=== PATIENT | female | born 1960 | race Caucasian/White ===

== ENCOUNTER 2021-06-02 12:30 | Outpatient (RCR) | payer BC, SELFPAY ==
--- NOTE | 2021-04-21 10:47 | PTOPEVAL ---
PHYSICAL THERAPY EVALUATION AND PLAN OF CARE 04-20-21 Thank you for referring Nila Rodriguez to [facility] for the diagnosis of lymphedema. She is scheduled to be seen for therapy? 1-2 x/week for 6 weeks. Treatment was recommended for 2x/wk, but due to her schedule, she requested 1-2x/wk. Please review, sign, date and return this plan of care PAOLO. I agree with and certify that the following plan of care is medically necessary. Referring Physician Date Attending Provider: Audi Lerner MD *PT Outpatient Evaluation Document 04/21/21 09:10 GEMINI (Rec: 04/21/21 10:47 GEMINI [id number]) Outpatient Past Medical History Past Medical History Source of Past Medical History Patient Neurological History Hx Neurological Disorders No Significant History Cardiovascular History Hx Cardiac Disorders No Significant History Respiratory History Hx Respiratory Disorders No Significant History Gastrointestinal History Hx Appendectomy Yes Genitourinary History Hx Genitourinary Disorders No Significant History Musculoskeletal History Hx Orthopedic Surgery Yes: R rotator cuff surgery; Hx Other Musculoskeletal Disorders Yes: B feet pain-?plantar fascitis L and pain bottom of feet;neck pain chronic Endocrine History Hx Endocrine Disorders No Significant History HEENT History Hx HEENT Disorders No Significant History Integumentary History Hx Skin Disorders No Significant History Other History Hx Cancer Yes: R breast cancer Hx Other Medical Conditions Yes: have had COVID vaccine; 40# wt gain in past year Evaluation Information Problem Diagnosis lymphedema Onset about one year Subjective Information more swelling and issues over Query Text:As Reported By Patient/ the past year; Family Prior Level of Function Activity Level (Last 3 Months) Occupation not working outside of home Hand Dominance Right Activity of Daily Living Ability Independent Indoor/Home Mobility Independent Community Mobility Independent Stairs Ability Independent Functional Cognition (Planning, Shopping Independent , Taking Medications) Cooking Yes Cleaning Yes Laundry Yes Shopping Yes Driving Yes Home Setting Home Type House Living Situation With Spouse Comments Additional Prior Level of Function decrease lifting and pulling Comments or overuse with R arm--if overdo it--increase pain and
--- NOTE | 2021-05-29 14:04 | PCPTNOTE ---
LATE ENTRY: 2nd session from last week canceled due to therapist ill;
--- NOTE | 2021-06-02 13:41 | PTOPEVAL ---
PHYSICAL THERAPY DISCHARGE 06-02-21 Refer to the clinical summary below, for her status today, compared to the initial evaluation. Discharge PT at this time. Thank you for referring Nila Rodriguez to [facility].? Please review, sign, date and return this Discharge Report PAOLO. I agree with and certify that the following plan of care is medically necessary. Referring Physician Date Attending Provider: Audi Lerner MD Document 06/02/21 12:41 GEMINI (Rec: 06/02/21 13:41 GEMINI [id number]) Assessment Status Discharge Subjective Information Nila reports: doing better, Query Text:As Reported By Patient/ arm improved, but still Family fullness in upper arm; is doing self massage at home and using her home pump daily; sleeve and glove are doing good; am using arm with chores ; realize that she has to continue taking care of her arm daily; agrees to discharge from PT. Pain Assessment Timing of Pain Assessment Timing of Pain Assessment Assessment Pain Scale Pain Scale Used Numeric (1 - 10) Self Report Pain Assessment Right Arm(s) Reported Pain Level 2 Radicular Pain Location heavy and ache in upper arm Pain Frequency Chronic,Continuous Other Pain Description fullness of upper arm- comes and goes, always feels different than L Pain Score Pain Score 2: Self Report Interventions Used Interventions Used By Clinicians Education Cervical and Lumbar ROM Cervical ROM Cervical ROM Comments standing cervical rotation to R and L ~ 80' without pain reported Upper Extremity Range of Motion General Upper Extremity Range of Motion Gross Upper Extremity Range of Motion standing R shoulder active ROM Comments : flexion 160', abduction 160' - report tight at end range but is equal to the L shoulder ; IR- reach behind back, fingers to bra strap; ER- reach to back of head--palm to back of head; Lymphedema Evaluation Skin Inspection Location Right Upper Extremity,Right Anterior Lower Quadrant,Right Anterior Upper Quadrant,Right Posterior Lower Quadrant,Right Posterior Upper Quadrant Skin Observations Hyperpigmentation,Hyperplasia Palpation
== END 2021-06-07 15:28 | disposition home or self-care (01) ==
LOC: ANHPT 12:30
DX: I89.0 Lymphedema, not elsewhere classified (principal); C50.911 Malignant neoplasm of unspecified site of right female breast; C77.3 Secondary and unspecified malignant neoplasm of axilla and upper limb lymph nodes; Z79.811 Long term (current) use of aromatase inhibitors
CPT/HCPCS: 97110; 97140; 97161

== ENCOUNTER 2021-08-10 08:37 | Emergency (ER) | payer BC, SELFPAY ==
--- NOTE | ~2021-08-10 | XR_ITS ---
EXAMINATION: XR shoulder RT min 2V DATE: 08/10/2021 09:40 INDICATION: Right shoulder pain and limited range of motion post fall TECHNIQUE: AP internally and externally rotated, AP oblique externally rotated and transscapular Y vi ews of the right shoulder were obtained. COMPARISON: None FINDINGS: Comminuted fractures of the right humerus which involves the greater trochanter as well as a transver se fracture line which extends across the surgical neck and inferior aspect of the lesser trochanter. Fractures remain minimally displaced consistent with a 1 part fracture. No other fractures identifie d. Mild acromioclavicular osteoarthritis with small inferiorly directed osteophyte. Multiple surgical clips the right axilla likely related to prior lymph node dissection. Right lung is clear with no pl eural effusion or pneumothorax. Surgical clip projecting over the central chest likely related to crispin or right mastectomy better appreciated on CT dated 06/24/2017. Left-sided central venous catheter with distal tip at the caudal superior vena cava. IMPRESSION: Minimally displaced comminuted 1 part fracture of the proximal right humerus. Reviewed, dictated and finalized at location A.
--- NOTE | ~2021-08-10 | CT_ITS ---
EXAMINATION: CT shoulder RT wo con DATE: 08/10/2021 11:11 INDICATION: Shoulder pain and proximal humeral fracture post fall. TECHNIQUE: High resolution computed tomography (CT) of the right shoulder was performed without intra venous contrast. Additional sagittal and coronal reconstructions were performed. Automated exposure c ontrol and iterative reconstruction technique were employed. The dose-length product was 338.69 mGy-c m. COMPARISON: Right shoulder radiographs dated 08/10/2021 FINDINGS: Minimally displaced comminuted 1 part fracture of the proximal right humerus. This includes a transve rse fracture extending across the surgical neck and the inferior aspect of the lesser tuberosity. The re is an additional fracture plane extending across the cephalad aspect of the lesser tuberosity resu lting in nondisplaced free lesser tuberosity fragment. A fracture plane also extends across the base of the greater tuberosity. The greater tuberosity and the rotator cuff footplates are divided amongst 3 main fragments. No evident involvement of the articular cortex. Alignment remains near-anatomic. The humeral head remains normally centered over the glenoid with nor mal glenohumeral joint space where there is a small hemarthrosis. No other fractures identified. Mild acromioclavicular osteoarthritis. Minimal fine reticular opacities along the anterior margin of the right upper lobe which could represent radiation fibrosis related to a prior breast cancer suggested by prior right mastectomy and right axillary lymph node dissection with several surgical clips at the right axilla. Visualized portion of the right lung is otherwise clear. No pathologically enlarged ri ght hilar or axillary lymphadenopathy. IMPRESSION: 1. Minimally displaced comminuted 1 part fracture of the proximal right humerus involving the surgica l neck, lesser tuberosity and comminuted fracture of the greater tuberosity. 2. Small right glenohumeral hemarthrosis. Reviewed, dictated and finalized at location A. IMPRESSION: 1. Minimally displaced comminuted 1 part fracture of the proximal right humerus involving the surgical neck, lesser tuberosity and comminuted fracture of the greater tuberosity. 2. Small right glenohumeral hemarthrosis.
[2021-08-10 09:10] VITALS: BP 135/73; PULSE 68; RESP 16; TEMP 36.6; O2SAT 98
--- NOTE | 2021-08-10 10:29 | ED.GENADULT ---
HPI - General Adult General Chief complaint: Extremity Injury, Upper <Danielle Weaver PA-C - Last Filed: 08/10/21 12:40> Stated complaint: r shoulder/fall <DERRICK Mistry Last Filed: 08/10/21 12:40> Time Seen by Provider: 08/10/21 09:20 <DERRICK Mistry Last Filed: 08/10/21 12:40> Source: patient <DERRICK Mistry Last Filed: 08/10/21 12:40> Mode of arrival: ambulatory <DERRICK Mistry Last Filed: 08/10/21 12:40> Limitations: no limitations <DERRICK Mistry Last Filed: 08/10/21 12:40> History of Present Illness HPI narrative: Patient presents with chief complaint of pain to the right shoulder that she sustained this morning while chasing her dog in the ER. Patient states that she tripped on the stump and feels lower onto her right shoulder. Patient reports pain with any movement in the right shoulder. She reports rotator cuff repair surgery and decompression of impingement 30 years ago. Patient reports some soreness to her anterior right hip but denies any bony tenderness or difficulties walking or moving the extremity. Patient denies any head impact or loss of consciousness. Patient denies any other symptoms or concerns. <Danielle Weaver PA-C - Last Filed: 08/10/21 12:40> Related Data Allergies/adverse reactions: Allergies Allergy/AdvReac Type Severity Reaction Status Date / Time cephalexin AdvReac Unknown Diarrhea Verified 08/10/21 11:22 <Danielle Weaver PA-C - Last Filed: 08/10/21 12:40> Review of Systems Review of Systems: CONSTITUTIONAL: Denies fever, chills, or sweats. EYES: Denies visual changes, redness, or discharge. ENT: Denies rhinorrhea, congestion, sore throat, or otalgia. CARDIOVASCULAR: Denies chest pain, palpitations, or edema. RESPIRATORY: Denies cough or dyspnea. GASTROINTESTINAL: Denies abdominal pain, nausea, vomiting, or diarrhea. GENITOURINARY: Denies dysuria or hematuria. SKIN: Denies rash or itching. MUSCULOSKELETAL: Reports right shoulder pain denies back pain, joint pain, or myalgia. NEUROLOGIC: Denies headache, numbness, dizziness, or weakness. PSYCHIATRIC: Denies anxiety or depression. <Danielle Weaver PA-C - Last Filed: 08/10/21 12:40> Exam Narrative: GENERAL: Well-appearing, well-nourished, and in no acute distress. HEAD: Normocephalic, atraumatic. EYES: PERRLA and EOMI. NECK: Supple. No signs of injury. Range of motion intact. CHEST: No tenderness to palpation. Clear to auscultation. No respiratory distress. No wheezes rales or rhonchi HEART: Regular rate and rhythm. No murmur heard. Normal peripheral pulses. ABDOMEN: Soft, nontender, nondistended, normal active bowel sounds. EXTREMITIES: Tenderness to palpation to the proximal right shoulder. All range of motion decreased due to pain. No pain distally. Strength intact. Patient denies servando tenderness to right proximal thigh. ROM intact to lower extremity. Patient able to ambulate. SKIN: Warm, dry, no rash. NEURO: No focal deficits. Alert and oriented x3. PSYCH: Normal mood and affect. <Danielle Weaver PA-C - Last Filed: 08/10/21 12:40> Course AVIATION MANAGER/PA Physician Supervision I did not see this patient nor was the care plan discussed with me. I was available for evaluation and consultation, I agree with the documentation as above. <Smith Martell MD - Last Filed: 08/10/21 16:21> Vital Signs Vital signs: Vital Signs Temperature 36.6 C 08/10/21 09:10 Pulse Rate 68 08/10/21 09:10 Respiratory Rate 16 08/10/21 09:10 Blood Pressure 135/73 08/10/21 09:10 Pulse Oximetry 98 08/10/21 09:10 Temperature 36.6 C 08/10/21 09:10 Pulse Rate 79 08/10/21 12:55 Respiratory Rate 16 08/10/21 12:55 Blood Pressure 142/81 H 08/10/21 12:55 Pulse Oximetry 98 08/10/21 12:55 <Danielle Weaver PA-C - Last Filed: 08/10/21 12:40> Vital Signs Temperature 36.6 C 08/10/21 09:10 Pulse Rate 68 08/10/21 09:10 Respirato
[2021-08-10] MEDS: HYDROcodone/acetaminophen (*CRX) 5-325 MG TABLET 1 TAB PO (11:36)
[2021-08-10 12:55] VITALS: BP 142/81; PULSE 79; RESP 16; O2SAT 98
== END 2021-08-10 12:55 | disposition home or self-care (01) ==
PROVIDERS: Emergency Provider Emergency Medicine
DX: S42.211A Unspecified displaced fracture of surgical neck of right humerus, initial encounter for closed fracture (principal); S42.251A Displaced fracture of greater tuberosity of right humerus, initial encounter for closed fracture; S42.261A Displaced fracture of lesser tuberosity of right humerus, initial encounter for closed fracture; W18.09XA Striking against other object with subsequent fall, initial encounter; Y93.02 Activity, running
CPT/HCPCS: 73030; 73200; 99284; A4565; A9270

== ENCOUNTER 2021-12-05 13:30 | Outpatient (RCR) | payer BC, SELFPAY ==
--- NOTE | 2021-09-12 10:11 | PTOPEVAL ---
PHYSICAL THERAPY EVALUATION AND PLAN OF CARE 09-12-21 Thank you for referring Nila Rodriguez to [facility] for the diagnosis of R proximal humeral fracture and L shoulder subacromial bursitis. She is scheduled to be seen for therapy? 1-2 x/week for 6 weeks. Please review, sign, date and return this plan of care PAOLO. I agree with and certify that the following plan of care is medically necessary. Referring Physician Date Attending Provider: Kiran Chase MD *PT Outpatient Evaluation Document 09/12/21 09:00 GEMINI (Rec: 09/12/21 10:09 GEMINI [id number]) Outpatient Past Medical History Past Medical History Source of Past Medical History Recalled from Previous Visit, Confirmed with Patient/Family Neurological History Hx Neurological Disorders No Significant History Cardiovascular History Hx Cardiac Disorders No Significant History Respiratory History Hx Respiratory Disorders No Significant History Gastrointestinal History Hx Appendectomy Yes Genitourinary History Hx Genitourinary Disorders No Significant History Musculoskeletal History Hx Orthopedic Surgery Yes: R rotator cuff surgery- impingement & repair rot cuff; Hx Other Musculoskeletal Disorders Yes: B feet pain-?plantar fascitis L and pain bottom of feet;neck pain chronic Endocrine History Hx Endocrine Disorders No Significant History HEENT History Hx HEENT Disorders No Significant History Integumentary History Hx Skin Disorders No Significant History Other History Hx Cancer Yes: R breast cancer with mast &lymph node removal; compression sleeve & home pump Hx Other Medical Conditions Yes: have had COVID vaccine; 40# wt gain in past year Evaluation Information Problem Diagnosis L proximal humeral fracture; chronic pain L shoulder- subacromial bursitis Onset 08-10-21 Subjective Information fell when chasing her dog, Query Text:As Reported By Patient/ fell forward, with R arm Family extended and onto her R hip; non surgical, wearing sling, but reports remove at home and let arm hang, doing pendulum exercises 3x/day; Diagnostic Tests X-Rays For This Problem Yes: L shoulder xray negative, chronic pain Prior Level of Function Activity Level (Last 3 Months) Hand Dominance Right Activity of Daily Living Ability Independent Indoor/Home Mobility Independent Community Mo
--- NOTE | 2021-09-26 11:09 | PCPTNOTE ---
pt brought in new orders today:dated 09-25-21: Dr Chase: L shoulder: periscapular strengthening, GH ROM, rot cuff strengthening; R shoulder: PROM and AAROM, 5# lifting restriction, NO Strengthening; plan of care updated to above; discussed pt with TIMO Lucero
--- NOTE | 2021-10-23 11:53 | PCPTNOTE ---
pt did not show for reeval appt today; she called over ah hour after the appt time and canceled due to not feeling well.
[2021-11-10 11:05] VITALS: BP_SYST 85
--- NOTE | 2021-11-10 11:44 | PTOPEVAL ---
PHYSICAL THERAPY RE-EVALUATION AND UPDATED PLAN OF CARE 11-10-21 Refer to the clinical summary below, for her status today, compared to the initial evaluation. Continue PT treatment 1x/wk for 4 weeks. Thank you for referring Nila Rodriguez to [facility].? Please review, sign, date and return this plan of care PAOLO. I agree with and certify that the following plan of care is medically necessary. Referring Physician Date Attending Provider: Kiran Chase Assessment Status Re-evaluation Subjective Information Nila reports: cortisone shot Query Text:As Reported By Patient/ in L shoulder has helped pain Family ; sleeping is better, awaken about once/week due to shoulder pain; cannot lie on her R shoulder but able to move around in bed better; is sleeping in the bed; R shoulder is improving and less painful; no restrictions from dr, other than 5# lifting for R arm; if L shoulder is not better at the next dr visit, he will order an MRI ? for tear of shoulder; have been doing her exercises at home and have a pully at home now; Pain Assessment Timing of Pain Assessment Timing of Pain Assessment Assessment Pain Scale Pain Scale Used Numeric (1 - 10) Self Report Pain Assessment Right Shoulder(s) Reported Pain Level 0 Pain Description Aching,Dull,Sharp Pain Frequency Chronic,Intermittent Other Pain Description flashes of pain Lowest Pain Intensity 0 Greatest Pain Intensity 4 Pain Aggravating Factors Exercise/Activity Other Pain Aggravating Factors reaching too high, lifting something Pain Behaviors Anxious,Guarding Left Shoulder(s) Reported Pain Level 0 Pain Description Sharp Radicular Pain Location little sharp, not bad pain anymore Pain Frequency Chronic,Intermittent Other Pain Description improved since got the shoulder injection 11-01-21 Lowest Pain Intensity 0 Greatest Pain Intensity 3 Pain Aggravating Factors Exercise/Activity Pain Score Pain Score 0,0: Self Report Additional Pain Score Comments pain in R forearm and arm is more swollen; have some
[2021-12-05 13:35] VITALS: BP_SYST 85
--- NOTE | 2021-12-05 14:19 | PTOPEVAL ---
PHYSICAL THERAPY RE-EVALUATION REPORT 12-05-21 Refer to the clinical summary below, for her status today, compared to the last reevaluation. The goals were partially achieved. Her L shoulder has improved, but the R shoulder continues to have pain with decreased ROM and strength. She is to see you next week. If PT is to continue, please give her a new script for PT. Thank you for referring Nila Rodriguez to [facility].? Please review, sign, date and return this reeval report PAOLO. I agree with and certify that the following plan of care is medically necessary. Referring Physician Date Attending Provider: Kiran Chase MD *PT Outpatient Re- Evaluation Subjective Information Nila reports: L shoulder is Query Text:As Reported By Patient/ better, but R shoulder still Family giving problems; reaching out to the side with R arm is hard and reaching up; R shoulder feels like shifting or clicking in it; sees the dr next week; is doing her exercises at home; frustrated that still having problems with R shoulder; Had cellulitis in R forearm-- finished antibiotics about 1 & 1/2 wk ago, still have some pain and tightness over forearm. Has still been wearing her compression sleeve for lymphedema over arm. Pain Assessment Timing of Pain Assessment Timing of Pain Assessment Assessment Pain Scale Pain Scale Used Numeric (1 - 10) Self Report Pain Assessment Right Shoulder(s) Reported Pain Level 0 Radicular Pain Location anterior, lateral and posterior GH joint Pain Frequency Chronic,Intermittent Other Pain Description weak and cannot move it--out to side or lift forward; popping in shoulder Lowest Pain Intensity 0 Greatest Pain Intensity 4 Pain Aggravating Factors Exercise/Activity Left Shoulder(s) Reported Pain Level 0 Pain Frequency Chronic,Intermittent Other Pain Description flash of pain when reach up too high; Lowest Pain Intensity 0 Greatest Pain Intensity 2 Pain Aggravating Factors Exercise/Activity Pain Score Pain Score 0,0: Self Report Additional Pain Score Comments cannot lie on R shoulder for sleeping; Interventions Used Interventions Used By Clinicians Education
--- NOTE | 2022-01-05 12:56 | PCPTNOTE ---
PHYSICAL THERAPY DISCHARGE 01-05-22 late entry Attending Provider: Kiran Chase MD Patient:Nila Rodriguez Date of :1960 Nila has not returned for any further treatments since the reevaluation on 12/05/2021, therefore she will be discharged at this time. Refer to the reevaluation report for her status at the last session. Thank you for referring Mrs. Rodriguez to [facility]. Please review, sign, date and return this discharge summary PAOLO. I have been updated about the patient's current status and I agree with discharge from the above service at this time. Referring Physician Date
== END 2021-12-11 23:59 | disposition home or self-care (01) ==
LOC: ANHPT 13:30
DX: M75.52 Bursitis of left shoulder (principal); S42.294D Other nondisplaced fracture of upper end of right humerus, subsequent encounter for fracture with routine healing
CPT/HCPCS: 97110; 97140; 97162

== ENCOUNTER 2022-02-21 13:15 | Outpatient (RCR) | payer BC, SELFPAY ==
[2022-01-18 12:30] VITALS: BP_SYST 100
--- NOTE | 2022-01-18 13:38 | PTOPEVAL ---
PHYSICAL THERAPY EVALUATION AND PLAN OF CARE 01-18-22 Thank you for referring Nila Rodriguez to [facility] for the diagnosis of B rotator cuff tears. Nila to be seen for therapy? 1 x/week for 5 weeks. She requested only once/week due to her other commitments. Please review, sign, date and return this plan of care PAOLO. I agree with and certify that the following plan of care is medically necessary. Referring Physician Date Attending Provider: Juan Alberto Tavarez MD Past Medical History Source of Past Medical History Recalled from Previous Visit, Confirmed with Patient/Family Neurological History Hx Neurological Disorders No Significant History Cardiovascular History Hx Cardiac Disorders No Significant History Respiratory History Hx Respiratory Disorders No Significant History Gastrointestinal History Hx Appendectomy Yes Genitourinary History Hx Genitourinary Disorders No Significant History Musculoskeletal History Hx Orthopedic Surgery Yes: R rotator cuff surgery- impingement & repair rot cuff; Hx Other Musculoskeletal Disorders Yes: B feet pain-?plantar fascitis L and pain bottom of feet;neck pain chronic Endocrine History Hx Endocrine Disorders No Significant History HEENT History Hx HEENT Disorders No Significant History Integumentary History Hx Skin Disorders No Significant History Other History Hx Cancer Yes: R breast cancer with mast &lymph node removal; compression sleeve & home pump Hx Other Medical Conditions Yes: have had COVID vaccine; 40# wt gain in past year Evaluation Information Problem Diagnosis B rotator cuff tears Onset Aug 10, 2021 Subjective Information s/p fall Jul with R Query Text:As Reported By Patient/ proximal humeral fracture and Family chronic pain L shoulder; since last here for PT; last week had injections R and L shoulder, has improved about 20%, but still hurts hwen move arms; told her to come for PT and get shoulders moving; surgery has not been considered; the past month have been busy with her parents returning from out of town and has not done any exercises for her shoulders. Previous Treatments Previous Treatments For This Problem previous PT here for B shoulders Sep 16
--- NOTE | 2022-02-21 14:04 | PTOPEVAL ---
PHYSICAL THERAPY DISCHARGE 02-21-22 Refer to the clinical summary below, for her status today compared to the initial evaluation. The goals were partially achieved. Nila is to continue with the home exercises and increasing her activity level. She did report falling this AM, when taking out the trash cans. She fell forward, landing on her knees first, then her extended arms. So, she had a little more soreness this afternoon. Discussed with her slow down, concentrate on what you are doing to try decrease any more falls. She voiced an understanding and did say she was concerned about the falls she has been having. Thank you for referring Nila Rodriguez to [facility] Please review, sign, date and return this Discharge report PAOLO. I agree with and certify that the following plan of care is medically necessary. Referring Physician Date Attending Provider: Dr. Krian Chase Subjective Information Nila reports: fell this AM-- Query Text:As Reported By Patient/ taking out trash can and fell- Family - forward,land on her knees first and then onto both arms; feels shoulders are improving- stronger and moving easier; still feel both shoulders; is afraid to move arms too much and make them hurt again; is doing the exercises; Pain Assessment Pain Scale Pain Scale Used Numeric (1 - 10) Self Report Pain Assessment Right Shoulder(s) Reported Pain Level 1 Pain Description Aching,Dull,Sharp Radicular Pain Location ant and post GH joint Pain Frequency Chronic,Intermittent Other Pain Description sharp when use arm Lowest Pain Intensity 0 Greatest Pain Intensity 3 Pain Aggravating Factors Exercise/Activity Pain Behaviors Anxious,Guarding Left Shoulder(s) Reported Pain Level 1 Pain Description Aching,Dull Pain Frequency Chronic,Intermittent Other Pain Description little aggravating pain, something change and feel little more Lowest Pain Intensity 0 Greatest Pain Intensity 4 Pain Score Pain Score 1,1: Self Report Additional Pain Score Comments doing OK in kitchen, except reaching high into the cabinets is still hard; is doing grocery shopping, carry less bags when unloading car; assist with carrying heavy things; am using arms pretty well; raked yard about 10 min and
== END 2022-02-22 13:49 | disposition home or self-care (01) ==
LOC: ANHPT 13:15
DX: M25.511 Pain in right shoulder (principal); M25.512 Pain in left shoulder
CPT/HCPCS: 97110; 97112; 97140; 97162

== ENCOUNTER → 2022-09-19 14:26 | Outpatient (CLI) | payer BC, SELFPAY ==
--- NOTE | ~2022-09-19 | XR_ITS ---
XR thoracic spine 3V DATE: 09/19/2022 14:47 INDICATION: Mid back pain TECHNIQUE: AP, lateral and swimmer views COMPARISON: None FINDINGS: Left Port-A-Cath catheter tip overlies superior vena cava. There is moderate degenerative spurring of the thoracic spine. There is osteopenia. No fracture, disl ocation or bone destruction of the thoracic spine is evident. The thoracic pedicles are intact. No pa raspinal soft tissue thickening. IMPRESSION: Osteopenia Moderate degenerative spurring Reviewed, dictated and finalized at location A. ESSOR OF RHETORIC
--- NOTE | ~2022-09-19 | XR_ITS ---
XR lumbar spine 2-3V DATE: 09/19/2022 14:47 INDICATION: Back pain TECHNIQUE: AP, lateral, coned lateral lumbosacral views COMPARISON: None FINDINGS: There is osteopenia. Normal alignment of the lumbar spine. No fracture or bone destruction or spondylolisthesis. The lumba r pedicles are intact. There is mild degenerative spurring but lumbar and lumbosacral interspaces are relatively preserved. The sacroiliac joints are intact. IMPRESSION: Osteopenia Mild degenerative spurring Reviewed, dictated and finalized at location A. STIC ENGINEER
== END ==
PROVIDERS: PCP Family Medicine; Visit Provider Family Medicine
DX: M54.9 Dorsalgia, unspecified (principal); M85.88 Other specified disorders of bone density and structure, other site
CPT/HCPCS: 72072; 72100

== ENCOUNTER 2022-09-24 11:23 | Outpatient (CLI) | payer BC, SELFPAY ==
[2022-09-24 19:54] LABS: Basophils Absolute Auto 0.1 K/mm3 (0.0-0.1); Basophils Percent Auto 1.2 % (0.2-1.2); Eosinophils Absolute Auto 0.3 K/mm3 (0-0.3); Eosinophils Percent Auto 3.6 % (0-4.4); Hematocrit 40.9 % (37.0-47.0); Immature Granulocyte Absolute 0.01 K/mm3 (0.00-0.031); Immature Granulocyte Percent A 0.1 % (0-0.5); Lymphocytes Absolute Auto 1.82 K/mm3 (0.9-3.2); Lymphocytes Percent Auto 24.4 % (18.3-44.2); Mean Corpuscular HGB Conc 31.8 g/dl (32-36); Mean Corpuscular Hemoglobin 29.9 pg (26-34); Mean Platelet Volume 10.7 fl (7.4-10.4); Monocytes Absolute Auto 0.7 K/mm3 (0.1-0.6); Monocytes Percent Auto 9.2 % (2.6-8.5); Neutrophils Absolute Auto 4.6 K/mm3 (1.3-6.7); Neutrophils Percent Auto 61.5 % (45.5-73.1); Platelet Count Result 295 k/mm3 (150-375); Red Blood Count 4.35 M/mm3 (4.2-5.4); Red Cell Distribution Width 13.1 % (11.5-14.5); White Blood Count 7.5 K/mm3 (4.5-10.0)
[2022-09-24 20:02] LABS: Alanine Aminotransferase 23 U/L (6-35); Albumin Level 4.2 g/dL (3.5-5.1); Alkaline Phosphatase 98 U/L (38-126); Anion Gap 9 mmol/L (8-16); Aspartate Amino Transferase 63 U/L (14-36); Bilirubin,Total 0.5 mg/dL (0.2-1.3); Blood Urea Nitrogen 13 mg/dL (7-17); Calcium 10.1 mg/dL (8.4-10.2); Carbon Dioxide 29 mmol/L (22-30); Chloride 104 mmol/L (98-107); Cholesterol 248 mg/dL (0-200); Estimated Glomerular Filt Rate > 60; Glucose 76 mg/dL (65-110); HDL Direct 50 mg/dL; Potassium 4.4 mmol/L (3.4-5.0); Sodium 142 mmol/L (137-145); Triglycerides 94 mg/dL (<150)
[2022-09-24 20:13] LABS: LDL Cholesterol Direct 124 mg/dL
[2022-09-24 20:34] LABS: Vitamin D 25 Hydroxy 23.1 ng/mL
== END 2022-09-24 11:24 | disposition home or self-care (01) ==
LOC: ANHGOSHLAB 11:24
PROVIDERS: PCP Family Medicine; Visit Provider Family Medicine
DX: Z00.00 Encounter for general adult medical examination without abnormal findings (principal); Z79.899 Other long term (current) drug therapy; E78.5 Hyperlipidemia, unspecified; E55.9 Vitamin D deficiency, unspecified
CPT/HCPCS: 36415; 80053; 80061; 82306; 84443; 85025

== ENCOUNTER 2023-10-02 10:55 | Emergency (ER) | payer BC, SELFPAY ==
--- NOTE | 2023-10-02 11:19 | ED.URI ---
HPI - URI/Sore Throat General Chief Complaint: Upper Respiratory Infection Stated Complaint: FEVER/CHILLS/SORE THROAT/COUGH/HEADACHE Time Seen by Provider: 10/02/23 11:19 Source: patient, RN notes reviewed and old records reviewed Mode of arrival: ambulatory Limitations: no limitations History of Present Illness HPI Narrative: . 63-year-old female who presents to [facility] with complaints of cough, body aches, sore throat,headache, and fevers starting on Saturday(3 days) ago. Patient reports that her cough is nonproductive and she continues to run fevers. Patient reports that her Cough is nonproductive. Patient has been taking OTC medications for her symptoms and cough syrup. MD elicited complaint: fever, cough, sore throat, rhinorrhea, nasal congestion and other (body aches, headache) Onset (ago): day(s) (3) Able to tolerate fluids by mouth: Yes Treatments prior to arrival: acetaminophen, ibuprofen, cold medicine and other (cough medication) Related Data Home Medications Medication Instructions Recorded Confirmed exemestane 25 mg tablet 25 mg PO DAILY 09/19/22 06/11/23 lactobacillus combination no.9 4 4,000 mmu cells PO DAILY 09/19/22 06/11/23 billion cell capsule (Adult 50 Plus Probiotic) multivitamin 1 tablet PO DAILY 09/19/22 06/11/23 calcium carbonate 500 mg calcium 500 mg PO TID 02/27/23 06/11/23 (1,250 mg) chewable tablet (Calcium 500) cholecalciferol (vitamin D3) 50 50 mcg PO DAILY 06/11/23 06/11/23 mcg (2,000 unit) capsule Allergies Allergy/AdvReac Type Severity Reaction Status Date / Time cephalexin AdvReac Unknown Diarrhea Verified 06/11/23 08:03 Review of Systems Review of Systems: CONSTITUTIONAL:Reports malaise, chills, sweats, or fever. EYES: Denies visual changes, redness, or discharge. ENT: Reports rhinorrhea, congestion, sinus pain, no otalgia and positive for sore throat. CARDIOVASCULAR: Denies chest pain, palpitations, or edema. RESPIRATORY: Reports cough.? Denies dyspnea. GASTROINTESTINAL: Denies abdominal pain, nausea, vomiting, diarrhea SKIN: Denies rash or itching. MUSCULOSKELETAL: reports myalgia. NEUROLOGIC:Reports headache. All systems reviewed & are unremarkable except as noted in HPI and below PMFSH Past Medical History Medical History Acquired lymphedema History of right breast cancer Lymphedema of right upper extremity Osteopenia of spine Proximal humerus fracture managed conservatively Vitamin D deficiency Surgical History Surgical History H/O mastectomy (~2016) H/O rotator cuff surgery (~1994) History of appendectomy (~1981) Family History Family History Father Malignant neoplasm of prostate Mother Uterine cancer Atrial fibrillation Sibling Non-Hodgkin lymphoma Grandparent Goiter Grandparent Throat cancer Social History Social History Smoking status: Never smoker Alcohol intake: never Substance use: never Substance use type: does not use Lack of Transportation: No Lack of Food: Never True Current Housing: I Have Housing Concerned About Future Housing: No Difficulty Paying Gas/Electric Bills: No Difficulty Paying for Meds: No Currently Unemployed: No Education: High School Diploma/GED Difficulty w/ Childcare or Family Care: No Living arrangements: with family Occupation/Education: unemployed Gender identity (if verbalized by the patient): Female Sexual Orientation (if Verbalized by the Patient): Straight or Heterosexual Spiritual care concerns: No Agree to blood products: No Comments At time of signature, agree with nursing past medical, surgical, social and family history. There is no relevant family history pertinent to the presenting complaint Exam Narrative:
[2023-10-02 11:20] VITALS: BP 126/68; PULSE 115; RESP 16; TEMP 37.6; O2SAT 99
== END 2023-10-02 12:11 | disposition home or self-care (01) ==
PROVIDERS: Emergency Provider Registered Nurse; PCP Family Medicine
DX: U07.1 COVID-19 (principal); M85.88 Other specified disorders of bone density and structure, other site; E55.9 Vitamin D deficiency, unspecified; Z85.3 Personal history of malignant neoplasm of breast; Z90.10 Acquired absence of unspecified breast and nipple
CPT/HCPCS: 87426; 87804; 87880; 99213; C9803; G0463

== ENCOUNTER 2024-03-27 08:53 | Outpatient (CLI) | payer BC, SELFPAY | END 2024-03-27 08:54 | disposition home or self-care (01) | LOC: ANHAUDASC 08:54 | PROVIDERS: PCP Family Medicine; Visit Provider Otolaryngology | DX: H90.3 Sensorineural hearing loss, bilateral (principal); H93.13 Tinnitus, bilateral | CPT/HCPCS: 92557; 92567 ==

== ENCOUNTER 2024-05-02 11:19 | Emergency (ER) | payer BC, SELFPAY ==
[2024-05-02 11:30] VITALS: BP 119/73; PULSE 98; RESP 16; TEMP 37.2; O2SAT 99
[2024-05-02 12:12] LABS: EDINFLUASCREEN Negative; EDINFLUBSCREEN Negative
[2024-05-02 12:13] LABS: EDSTREPNEGPOS1 Presumptive Negative
--- NOTE | 2024-05-02 12:21 | ED.URI ---
HPI - URI/Sore Throat General Chief Complaint: Upper Respiratory Infection Stated Complaint: Sinus Infection Symptoms Time Seen by Provider: 05/02/24 12:11 Source: patient and RN notes reviewed Mode of arrival: ambulatory Limitations: no limitations History of Present Illness HPI Narrative: Patient presents today complaining of 3 day history of sore throat, nasal congestion with cough that started last night. Denies shortness of breath, fever, or any additional symptoms. She has been taking Advil cold and Sinus and NyQuil with mild relief. No history of asthma or COPD. She is a nonsmoker. Related Data Home Medications Medication Instructions Recorded Confirmed exemestane 25 mg tablet 25 mg PO DAILY 09/19/22 05/02/24 lactobacillus combination no.9 4 4,000 mmu cells PO DAILY 09/19/22 05/02/24 billion cell capsule (Adult 50 Plus Probiotic) multivitamin 1 tablet PO DAILY 09/19/22 05/02/24 calcium carbonate (Calcium 500) 500 mg PO TID 02/27/23 05/02/24 cholecalciferol (vitamin D3) 50 50 mcg PO DAILY 06/11/23 05/02/24 mcg (2,000 unit) capsule Allergies Allergy/AdvReac Type Severity Reaction Status Date / Time cephalexin AdvReac Unknown Diarrhea Verified 05/02/24 12:03 Review of Systems Review of Systems: CONSTITUTIONAL: Denies body aches, fever, chills, or sweats. EYES: Denies visual changes, redness, or discharge. ENT: Denies rhinorrhea, or otalgia.+ congestion, sore throat CARDIOVASCULAR: Denies chest pain, palpitations, or edema. RESPIRATORY: Denies dyspnea.+ cough GASTROINTESTINAL: Denies abdominal pain, nausea, vomiting, or diarrhea. GENITOURINARY: Denies dysuria or hematuria. SKIN: Denies rash, itching, or wounds. MUSCULOSKELETAL: Denies back pain, joint pain, or myalgia. NEUROLOGIC: Denies headache, numbness, tingling, or weakness. PSYCH: Denies depression or anxiety. [facility] Past Medical History Medical History Acquired lymphedema History of right breast cancer Lymphedema of right upper extremity Osteopenia of spine Proximal humerus fracture managed conservatively Vitamin D deficiency Surgical History Surgical History H/O mastectomy (~2016) H/O rotator cuff surgery (~1994) History of appendectomy (~1981) Family History Family History Father Malignant neoplasm of prostate Mother Uterine cancer Atrial fibrillation Sibling Non-Hodgkin lymphoma Grandparent Goiter Grandparent Throat cancer Social History Social History Smoking status: Never smoker Alcohol intake: never Substance use: never Substance use type: does not use Lack of Transportation: No Lack of Food: Never True Current Housing: I Have Housing Concerned About Future Housing: No Difficulty Paying Gas/Electric Bills: No Difficulty Paying for Meds: No Currently Unemployed: No Education: High School Diploma/GED Difficulty w/ Childcare or Family Care: No Living arrangements: with family Occupation/Education: unemployed Gender identity (if verbalized by the patient): Female Sexual Orientation (if Verbalized by the Patient): Straight or Heterosexual Spiritual care concerns: No Agree to blood products: No Comments At time of signature, I have reviewed and agree with nursing past medical, surgical, social and family history unless otherwise noted. Please see nursing chart for further information. There is no relevant family history pertinent to the presenting complaint Exam Narrative: GENERAL: Mildly ill-appearing, well-nourished, and in no acute distress. HEAD: Normocephalic, atraumatic. EYES: EOMI. No redness or drainage. Conjunctivae normal. ENT: Mucous membranes pink and moist. Nares congested. No rhinorrhea. TMs normal bilaterall
== END 2024-05-02 12:59 | disposition home or self-care (01) ==
PROVIDERS: Emergency Provider Nurse Practitioner; PCP Family Medicine
DX: J40 Bronchitis, not specified as acute or chronic (principal); J06.9 Acute upper respiratory infection, unspecified; M85.88 Other specified disorders of bone density and structure, other site; E55.9 Vitamin D deficiency, unspecified; Z85.3 Personal history of malignant neoplasm of breast
CPT/HCPCS: 87081; 87804; 87880; 99213; G0463

== ENCOUNTER 2024-05-06 13:52 | Outpatient (CLI) | payer BC, SELFPAY ==
--- NOTE | ~2024-05-06 | MR_ITS ---
EXAMINATION: MR IAC wo/w con DATE: 05/06/2024 14:47 INDICATION: Other specified hearing loss, bilateral. TECHNIQUE: Magnetic resonance imaging (MRI) of the brain, brainstem, and internal auditory canals was performed without and with 13 mL MultiHance intravenous contrast. COMPARISON: Brain MRI 10/26/2017, head CT 09/08/2012 FINDINGS: There are scattered areas of nonspecific increased T2-weighted signal intensity in the cere bral white matter, which is within normal limits for the patient's age. There is a 4 mm focus of old hemorrhage in the left parietal-occipital deep white matter. There is no acute ischemic infarct. The ventricles are normal in size. There is mucosal thickening in the paranasal sinuses, worst in left ma xillary sinus. The orbits are normal. The internal auditory canals, inner ears, tympanic cavities, an d mastoid air cells are normal. IMPRESSION: 1. Focus of old hemorrhage in the left parietal occipital deep white matter, which may be a cavernoma . Reviewed, dictated and finalized at location E. IMPRESSION: 1. Focus of old hemorrhage in the left parietal occipital deep white matter, wh ich may be a cavernoma.
== END 2024-05-06 13:53 ==
LOC: MICIMG 13:53
PROVIDERS: PCP Family Medicine; Visit Provider Otolaryngology
DX: H91.8X3 Other specified hearing loss, bilateral (principal)
CPT/HCPCS: 70553; A9577

== ENCOUNTER 2024-10-09 09:53 | Outpatient (CLI) | payer BC, SELFPAY ==
--- NOTE | ~2024-10-09 | MR_ITS ---
MRI of the brain Clinical History: Hemangioma Technique: Axial and sagittal T1-weighted images were acquired. These were followed by axial T2-weigh arina, diffusion weighted, gradient, and FLAIR images. Following intravenous administration of 30 cc Mu ltiHance gadolinium, T1-weighted fat-sat imaging was performed in the axial, coronal, and sagittal pl anes. COMPARISON: 05/06/2024 Findings: There is stable 4 mm hypointense focus on gradient images in the left parietal occipital re gion, there is subtle curvilinear peripheral T2 hypointense signal is well. 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 No new mass lesion identified. No acute hemorrhage or acute infarct seen. Ventricles and subarachnoid spaces are unremarkable. Orbits are unremarkable. Retention cyst or polyp present in the floor the left maxillary sinus. Remaining paranasal sinuses and mastoid air cells are clear. Major intracranial flow voids are intact. Sagittal midline structures are intact. No abnormal postcontrast enhancement identified. IMPRESSION: Stable 4 mm small cavernous angioma versus remote microhemorrhage in the left parietal occipital ginny on. Reviewed, dictated and finalized at location M. INE TURNER IMPRESSION: Stable 4 mm small cavernous angioma versus remote microhemorrhage in the left p arietal occipital region.
== END 2024-10-09 09:54 | disposition home or self-care (01) ==
LOC: MICIMG 09:55
PROVIDERS: PCP Family Medicine; Visit Provider Neurological Surgery
DX: D18.00 Hemangioma unspecified site (principal)
CPT/HCPCS: 70553; A9577

== ENCOUNTER 2024-10-13 08:31 | Outpatient (CLI) | payer BC, SELFPAY | END 2024-10-13 08:32 | disposition home or self-care (01) | LOC: ANHAUDASC 08:32 | PROVIDERS: PCP Family Medicine; Visit Provider Family Medicine | DX: H90.3 Sensorineural hearing loss, bilateral (principal) | CPT/HCPCS: 92557 ==

== ENCOUNTER 2024-10-23 07:48 | Outpatient (RCR) | payer BC, SELFPAY | END 2024-10-23 09:59 | disposition other institution (70) | LOC: ANHAUDASC 07:48 | PROVIDERS: PCP Family Medicine; Visit Provider Nurse Practitioner Family | DX: Z46.1 Encounter for fitting and adjustment of hearing aid (principal) | CPT/HCPCS: V5261 ==

== ENCOUNTER 2025-08-03 11:40 | Outpatient (CLI) | payer MEDICARE, SELFPAY ==
--- OUTSIDE RECORDS SUMMARY | 2025-08-03 12:57 | XMS_ITS | Clinical Summary ---
Author Organization [facility] Address [address] [place] [address] Care Team Providers Care Vice President For Instruction Name Role Phone Scooter Lester MD Primary Care Provider [phone] YannAudi owens MD Unavailable [phone] Source Comments [facility],non-owned Affiliates and Associated Physician Practices is amultiple site organization consisting of ambulatory clinics and hospital sitesin [place], [place], [place] and [place]. This disclosure is being madepursuant to the Care Everywhere program and may not contain all information available regarding this patient. Last updated 18.[facility] Dispatch Allergies Active Allergy Reactions Criticality Noted Date Comments Cephalexin GI Discomfort 12/22/2019 Medications * Be aware that medications may not be up to date on this document. Alwaysverify current medications with the patient. exemestane (AROMASIN) 25 MG tablet Take 1 (one) tablet by mouth once daily Active Multiple Vitamins-Mineral s (MULTIVITAMIN ADULTS PO) Active Magnesium Citrate (CITRATE OF MAGNESIA) solution Take 296 mL by mouth once Active vitamin C (ASCORBIC ACID) 1000 MG tablet Take 1 (one) tablet by mouth once daily Active Calcium Citrate-Vitamin D (RASHAD-CITRATE PLUS VITAMIN D PO) Take by mouth. Active [place]-3 Fatty Acids (fish oil delayed release) 1000 MG capsule Take by mouth. Active Misc Natural Products (Turmeric Curcumin) Take by mouth once daily Active Active Problems Patient Care Coordination No te Formatting of this note migh t be different from the original. Primary Care Provider: Scooter Lester MD [address] [place] [address] No known active problems Encounters Date Type Department Care Team Description 05/25/2025 11:00 AM CDT Office Visit [facility] - Surgery [address], [address] [place] [id number] Melida Browning MD History of breast cancer (Primary Dx); S/P left mastectomy 05/25/2025 10:15 AM CDT - 05/25/2025 11:59 PM CDT Hospital Encounter [facility] [address] [place] [address] Discharge Disposition: Home or Self Care from Last 3 Months Family History Medical History Relation Name Comments Cancer - Prostate Father Cancer - Breast Maternal Aunt great Cancer - Uterine Mother Relation Name Status Comments Father Alive Maternal Aunt great Mother Alive Social History Tobacco Use Types Packs/Day Years Used Date Smoking Tobacco: Never Smokeless Tobacco: Never Tobacco Cessation:Counseling Given: Not Answered Alcohol Use Standard Drinks/Week Comments Never 0 (1 standard drink = 0.6 oz pur e alcohol) PHQ-2 Answer Date Recorded PHQ2 TOTAL SCORE 0 03/21/2023 Comments No Sex and Gender Information Value Date Recorded Sex Assigned at Not on file Legal 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 Gender Identity Not on file Sexual Orientation Not on file Last Filed Vital Signs Vital Sign Reading Time Taken Comments Blood Pressure 132/73 05/25/2025 10:46 AM CDT Pulse 71 05/25/2025 10:46 AM CDT Temperature 36.2 C (97.1 F) 05/25/2025 10:46 AM CDT Respiratory Rate 16 12/22/2019 9:17 AM MINER ASSISTANT Oxygen Saturation 100% 03/21/2023 10:43 AM CDT Inhaled Oxygen Concentration - - Weight 66.9 kg (147 lb 6.4 oz) 05/25/2025 10:46 AM CDT Height 165.1 cm (5' 5) 05/25/2025 10:46 AM CDT Body Mass Index 24.53 05/25/2025 10:46 AM CDT Plan of Treatment Upcoming Encounters Date Type Department Care Team (Late st Contact Info) Description 05/26/2026 8:40 AM CDT Appointment [facility] [address] [place] [address] 05/26/2026 9:15 AM CDT Office Visit [facility] - Surgery [address], [address] [place] [address] Melida Browning MD [address] [place] [address] Health Maintenance Due Date Last Done Comments COLOGUARD (AGES 45-75) - COLON CA SCREENING 1959 CT COLONOGRAPHY - COLON CA SCREENING 1959 FIT - COLON CA SCREENING 1959 FLEX SIG - COLON CA SCREENING 1959 LIPID TESTING 1959 HEPATITIS C SCREENING 07/15/1977 DTAP/TDAP/TD VACCINES (1 - Tdap) 1978 PNEUMOCOCCAL VACCINE 50+ (1 of 1 - PCV) 2009 ZOSTER VACCINE (1 of 2) 2009 DEPRESSION SCREENING 10/28/2024 03/21/2023 MEDICARE AWV CALENDAR YEAR 2024 COVID-19 VACCINE (1 - season) 2025 INFLUENZA VACCINE (#1) 2025 MAMMOGRAM 05/25/2027 05/25/2025, 04/28, 03/21/2023, Additional history exists COLON MONITORING 03/26/2034 03/26/2024, 01/30/2017 COLONOSCOPY - COLON CA SCREENING 03/26/2034 03/26/2024, 01/30/2017 Colorectal Cancer Screening 03/26/2034 Respiratory Syncytial Virus (RSV) Vaccine Pt: or over 60 yrs (1 - 1-dose 75+ series) 2034 BONE DENSITY TESTING Completed 06/05/2023, 04/05/20 21 HEPATITIS B VACCINE Aged Out No longe r eligible based on patient's age to complete this topic HIB VACCINE Aged Out No longer eligi ble based on patient's age to complete this topic HPV VACCINE Aged Out No longer eligi ble based on patient's age to complete this topic MENINGOCOCCAL (Group B) VACCINE SHARED DECISION-MAKING Aged Out No longer eligible based on patient's age to complete this topic MENINGOCOCCAL GROUPS A/C/Y/W VACCINE Aged Out No longer eligible based on patient's age to complete this topic Procedures Procedure Name Priority Date/Time Associated Diagnosis Comments MAMMO LEFT SCREENING W GREYSON Routine 05/25/2025 10:32 AM CDT Encounter for screening mammogram for malignant neoplasm of breast from Last 3 Months Results * Mammo Left Screening W Greyson (05/25/2025 10:32 AM CDT) Anatomical Region Laterality Modality Breast Left Mammography 05/27/2025 2:43 PM CDT Impressions 05/27/2025 2:44 PM CDT IMPRESSION: There is no mammographic evidence of malignancy. OVERALL FINAL ASSESSMENT: BI-RADS Category 1: Negative. Annual screening mammography is recommended. > Interpreting Provider: Ree Willis MD on 05/27/2025 2:44 PM Narrative 05/27/2025 2:44 PM CDT EXAMINATION: LEFT DIGITAL SCREENING MAMMOGRAM AND LEFT BREAST TOMOSYNTHESIS HISTORY: Screening. COMPARISON: Serial examinations dating back to 2021. TECHNIQUE: LEFT digital breast tomosynthesis (DBT) and synthetic 2D digital mammogram images were obtained (LEFT craniocaudal and mediolateral oblique projections) including computer aided detection (CAD.) BREAST PARENCHYMAL COMPOSITION:Category C: The breasts are heterogeneously dense which may obscure small masses. MAMMOGRAM FINDINGS: There is no suspicious mass calcification or area of architectural distortion in the LEFT breast. Melida Browning MD MAMMO ORDERABLES Final Result from Last 3 Months Insurance [employer] MEDICARE ADV Care Teams Vice President For Instruction Relationship Specialty Start Date End Date Scooter Lester MD PCP - General Internal Medicine 12/22/19 Audi Lerner MD Hematology and Oncology 03/14/21
--- OUTSIDE RECORDS SUMMARY | 2025-08-03 12:57 | XMS_ITS | Clinical Summary ---
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 Gender Identity Not on file Sexual Orientation Not on file Plan of Treatment Health Maintenance Due Date Last Done Comments Hepatitis C Virus (HCV) Screening 1960 TdaP Immunization 1959 Cologuard 2004 Colonoscopy 2004 Colorectal Cancer Screening 2004 Immunochemical Fecal Occult Blood 2004 Pneumococcal Immunization (5 0+ years) (1 of 1 - PCV) 2009 Zoster Immunization (1 of 2) 2009 Influenza Immunization (#1) 2025 SARS-COV-2 Immunization ( season) 2025 Respiratory Syncytial Virus (RSV) Immunization (Adult) (1 - 1-dose 75+ series) 2034 Hepatitis B Immunization Aged Out No longer eligible based on patient's age to complete this topic Human Papillomavirus (HPV) Immunization Aged Out No longer eligible b ased on patient's age to complete this topic Meningococcal Immunization (ACWY) Aged Out No longer eligible based on patient's age to complete this topic Rotavirus Immunization Aged Out No lo nger eligible based on patient's age to complete this topic
--- OUTSIDE RECORDS SUMMARY | 2025-08-03 12:57 | XMS_ITS ---
Author Organization [facility] Address [address] [place] [phone] Care Team Providers Care Flooring Professional Name Role Phone Scooter Lester MD Primary Care Provider + Active Problems Problem Noted Date Diagnosed Date Breast cancer metastasized to axillary lymph nod e 02/27/2017 S/P right mastectomy 02/22/2017 Infiltrating ductal carcinoma of right female br east 01/07/2017 Overview (09/04/2021): right breast/SBR SCORE 7/PENNY SCORE GRADE 2 CARCINOMA Care Plan for Breast Cancer Prepared by: Isatu Alcaraz on 12/02/2017 at [facility] General Information Patient Name NILA JIMENES Phone (home) Date of 1960 Age at diagnosis 56 Support contact Care team International Project Manager/oncologist Dr. Lerner, General/breast surgeon JONATHON ESCAMILLA, Radiation oncologist hCuck Rose Plastic surgeon Primary care physician Dr. Burkett OB-OPERATING ROOM TECH Dr. Sotelo ([facility]) Nurse/nurse practitioner Isatu Alcaraz, Mental health/director social Coordination of care Background Information Family history Second degree relative with breast cancer, mother with uterine cancer, Genetic testing Not applicable Echocardiogram or MUGA result EF = 61% Additional comments On 01/02/17 presented with 6 month history of right breast pain and inverted nipple. Diagnostic mammogram at [facility] demonstrated an irregularity and calcifications in the right breast at 11 o'clock as well as axillary adenopathy. Breast ultrasound identified a corresponding suspicious solid mass. On 01/07/2017 a core biopsy was performed and pathology revealed an invasive ductal carcinoma, intermediate grade, estrogen receptor positive, progesterone receptor negative, and HER 2 positive/amplified. On 01/22/2017 a breast MRI demonstrated findings consistent with multicentric disease within the lateral aspect of the right breast with the abnormal area of enhancement extending over a distance of 6.9 cm. Also seen were enlarged axillary lymph nodes with at least 5 abnormal lymph nodes. 02/14/2017 right mastectomy without reconstruction. The right breast contained a multicentric invasive ductal carcinoma which was high grade with a Colton score of 8 out of 9, measuring 3 cm, 2.2 cm, 1.2 cm and 0.7 cm. 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 Surgical margins were negative. Montara lymph node biopsy showed cancer in 1 of 1 node. Formal axillary node dissection showed disease in 10 of 18 nodes. On 02/25/2017 a staging PET/CT scan demonstrated mildly hypermetabolic lymph nodes in the right supraclavicular region, concerning for cancer involvement. Right breast Definitive breast surgery Mastectomy on 02/14/2017 Montara node biopsy Yes, 02/14/2017 Axillary dissection Yes, 02/14/2017 Lymph nodes 11 positive, 19 removed Tumor type & stage Infiltating ductal, T2 (Tumor is more than 2 cm (3/4 of an inch) but not more than 5 cm (2 inches) across), N3 Pathologic stage Stage III (Locally advanced cancer with small, moderate or large tumor and lymph node involvement) Estrogen receptor status Positive Progesterone receptor status Negative HER2 status Positive Treatment Plan & Summary Pre-treatment Post-treatment Regimen TCH X 4, FEC X3, followed by maintenance Herceptin/Perjeta Taxotere + Herceptin + Perjeta every 21 days X 4 cycles (03/20-05/23/17) Fluorouracil + Epirubicin + Cytoxan every 21 days X 3 cycles (06/17-07/30/17) Herceptin every 21 days (08/20-11/11/17) Herceptin + Perjeta every 21 days (12/02- 04/28/18) Treatment on clinical trial No Therapeutic agents # cycles % dose reduction Taxotere 4 Herceptin 18 Perjeta 12 Epirubicin 3 Cytoxan 3 Fluorouracil 3 Neulasta 3 Biologic therapy Planned: Yes, Administered: Yes Ejection fraction Pre-biologic therapy: 61% (03/07/2017), Most recent: 67% (07/30/2017) Biologic therapy treatment dates 03/20/2017 -04/28/2018 Anthracycline administered Epirubicin, 519 mg Pre-operative chemo administered No Chemotherapy treatment period 03/20/2017 -07/30/2017 Possible side effects of regimen Anemia, Cardiac symptoms, Fatigue, Hair loss, Low blood count, Menopause symptoms, Muscle aches, Nausea/vomiting, Neuropathy, Sores in mouth Reconstruction Planned: No, Completed: No Radiation therapy Planned: Yes, Completed: Yes, dose: Right chest wall and regional lymphatics Growth factor given Yes Hospitalization for toxicities No Neurotoxicity impairing activities No Disease status at end of treatment No evidence of disease, Unknown whether this tumor is present Endocrine therapy Aromatase inhibitor: letrozole Endocrine therapy timing 10 years, starting 10/28/2017 Follow-Up Care UPON SCREENING, THE PATIENT HAS BEEN DETERMINED TO HAVE THE FOLLOWING ISSUE(S): Patients - Please consult your health care provider for medical advice specific to you before using any medications, supplements, or other products, and before beginning any lifestyle program. Needs/Concerns Suggested intervention(s) Bone health/osteoporosis risk Bone densitometry every 1 to 2 years after initiation of aromatase inhibitor (if applicable) and/or at age 65 or older Calcium and Vitamin D Weight-bearing exercise Avoidance of smoking/smoking cessation counseling, if appropriate Bisphosphonate, if indicated per bone densitometry Depression Referral for psychiatric care or counseling and/or initiation of pharmacotherapy Declines anti-depressant therapy at this time. Discussed role of Effexor as an anti-depressant and can also relieve hot flashes. At this time will try alternative approaches Lesley Bower- # [phone] Referral to integrative medicine Cancer Support Community Hot flashes Magnesium 500mg 1-2 times daily Cotton clothing and bed linens sleep with fan in room Exercise Limit caffeine and alcohol in the eveningns Other options: Venlafaxine (Effexor) 37.5mg up to 75 mg daily Clinical breast exam status Clinical breast exam every 6 months Mammography status Annual mammography needed Screening for other cancers Breast cancer diagnosis does not change screening practices for other cancers: If 50 or older: Colonoscopy every 10 years if first one normal- last colonoscopy December 2016- normal, repeat 2026 If 30 or older: Pap smear every 3 years as long as the last 3 were normal, every year if abnormal Insomnia As appropriate: Instructions on sleep hygiene Melatonin 5mg nightly Hot flash management Treatment for anxiety Fatigue Regular physical activity (e.g., walking 20 minutes daily) Evaluation for hypothyroidism, anemia, depression Memory problems and/or confusion Patients should know that 25% of cancer patients have cognitive dysfunction after treatment and it usually gets better over time sleep disturbance may also be contributing- see recommendations under insomnia Discussed staying organized, keeping a business planner Lymphedema Referral to lymphedema physical therapy specialist for lymphatic massage Weight training Maintenance of healthy weight Flexitouch Joint aches and pains Symptom management- tylenol/ NSAIDS Consideration of switch to another aromatase inhibitor, as some can cause joint aches/pain Pain with intercourse/vaginal dryness Recommendation for vaginal lubricant (Astroglide) or moisturizer (Replens, 1x every 3 days) Information provided on Rosemary Tiarra Touch Referral to integrative medicine Wellness (e.g., diet, exercise, smoking cessation) Maintenance of body weight as weight gain is associated with recurrence Regular physical activity (e.g., walking 20 minutes daily) Avoidance of smoking/smoking cessation counseling, if appropriate Limitation of alcohol intake to <1 drink, 2-3x per week Referral to Artspace program at local [facility] * Dr. Beltran's anti-inflammatory diet: [email or web address] Surveillance When/How often Coordinating provider Medical history/physical exam: Yrs 1-[address] Lerner, Dr. Escamilla Medical history/physical exam: Yrs 4,5 Every 6 months Post-treatment mammography Every year Due May 05 at 9:40 am Bone densitometry Every 2 years Pelvic examination Every year Genetic counseling referral Not applicable Breast self-examination Every month Preventive care recommendations Bone health, Colon cancer screening, Cholesterol monitoring/management, Diabetic screening/management, Diet, Exercise, Hypertension control, Mental health, Vaccines Comments on follow-up care labs, tumor marker test, repeat CT chest per Dr. Lerner Mammogram April [address] Escamilla End Notes Note 1: Important caution. This is a summary document whose purpose is to review the highlights of the cancer chemotherapy treatment plan for this patient. This does not replace information available in the medical record, a complete medical history provided by the patient, examination and diagnostic information, or educational materials that describe strategies for coping with cancer and adjuvant chemotherapy in detail. Both medical science and an individual s health care needs change, and therefore this document is current only as of the date of preparation. This summary document does not prescribe or recommend any particular medical treatment or care for cancer or any other disease and does not substitute for the independent medical judgment of the treating professional. Current Treatment and Therapy Plans No current plan information found. Past Treatment and Therapy Plans No past plan information found. Lifetime Dose Tracking * Chemical Lifetime Dose Automatic Entry Manual Entr y Fluoro Time 0.23 minutes 0.23 minutes 0 minutes
--- OUTSIDE RECORDS SUMMARY | 2025-08-03 12:57 | XMS_ITS | Encounter Summary ---
Author Organization [facility] Address [address] [place] [address] Care Team Providers Care Printing Roller Handler Name Role Phone Graciela Winters MD Primary Care Provider Encounter Details Date Type Department Care Team (Late st Contact Info) Description 03/18/2017 Chart Note [facility] Radiation Therapy [address] [place] [address] [place] [address] [place] [address] Social History Tobacco Use Types Packs/Day Years Used Date Smoking Tobacco: Never Smokeless Tobacco: Never Alcohol Use Standard Drinks/Week Comments No 0 (1 standard drink = 0.6 oz pur e alcohol) Comments No Sex and Gender Information Value Date Recorded Sex Assigned at Not on file Legal Sex Female 3:36 AM COMPUTER NETWORKING INSTRUCTOR Gender Identity Not on file Sexual Orientation Not on file documented as of this encounter Plan of Treatment Upcoming Encounters Date Type Department Care Team (Late st Contact Info) Description 08/10/2025 8:00 AM CDT Appointment [facility] [address] [place] [address] [place] [address] [facility] [address] [place] [address] Mary Carlos MD [address] [facility] [address] [place] [address] Karmen Gómez, Occupational Therapist [address] [place] [address] [address] [place] [address] 08/16/2025 8:00 AM CDT Appointment [facility] [id number] [place] [address] [address] [place] [address] Mary Carlos MD [address] [facility] [address] [place] [phone] Karmen Gómez, Occupational Therapist [address] [place] [address] [address] [place] [address] 08/23/2025 8:00 AM CDT Appointment [facility] [address] [place] [address] [address] [place] [address] Mary Carlos MD [address] [facility] [address] [place] [phone] Karmen Gómez, Occupational Therapist [address] [place] [address] [address] [place] [address] 08/30/2025 11:00 AM COMPUTER NETWORKING INSTRUCTOR Appointment [facility] [address] [place] [address] [address] [place] [address] Mary Carlos MD [address] [facility] [address] [place] [phone] Karmen Gómez, Occupational Therapist [address] [place] [phone] 09/09/2025 11:00 AM COMPUTER NETWORKING INSTRUCTOR Appointment [facility] [address] [facility] [address] [place] [phone] Mary Carlos MD [address] [facility] [address] [place] [phone] Karmen Gómez, Occupational Therapist [address] [place] [address] [address] [place] [address] 09/15/2025 12:00 PM COMPUTER NETWORKING INSTRUCTOR Appointment [facility] J[facility]AN HARO [address] [facility] [address] [place] [phone] Mary Carlso MD [address] [facility] [address] [place] [address] Karmen Gómez Occupational Therapist [address] [place] [address] [address] [place] [address] 06/08/2026 11:45 AM CDT Office Visit [facility] [phone] [place] [address] [address] [place] [phone] Mary Carlos MD [address] [address] documented as of this encounter Visit Diagnoses Not on filedocumented in this encounter Care Teams Printing Roller Handler Relationship Specialty Start Date End Date Graciela Winters MD [address] [place] [address] [place] [address] PCP - General Family Practice 06/09/25 documented as of this encounter
--- OUTSIDE RECORDS SUMMARY | 2025-08-03 12:57 | XMS_ITS | Encounter Summary ---
Author Organization [facility] Address [address] [place] [address] Care Team Providers Care Track Service Person Name Role Phone Graciela Winters MD Primary Care Provider Encounter Details Date Type Department Care Team (Late st Contact Info) Description 06/22/2025 Results Follow-Up [facility] Oncology and Hematology Juan Antonia [address] [facility] [address] [place] [address] Mary Carlos MD [address] [facility] [address] [place] [address] XR DEXA BONE DENSITY AXIAL 1 OR MORE SITES Social History Tobacco Use Types Packs/Day Years Used Date Smoking Tobacco: Never Smokeless Tobacco: Never Alcohol Use Standard Drinks/Week Comments No 0 (1 standard drink = 0.6 oz pur e alcohol) Feeling Safe Answer Date Recorded Do you worry about feeling s afe and happy with the people in your life? No 06/09/2025 Feeling Safe Answer Date Recorded Are you in a relationship wi th someone who hurts you emotionally and/or physically? No 06/26/2024 Food Insecurity Answer Date Recorded Patient needs follow up regardin 02/25/2025 Transportation Needs Answer Date Record ed Patient needs follow up regardin 02/25/2025 Housing Stability Answer Date Recorded Social/Environmental Concerns No concerns Utility Needs Answer Date Recorded Patient needs follow up regardin 02/25/2025 Comments No Sex and Gender Information Value Date Recorded Sex Assigned at Not on file Legal Sex Female 3:36 AM ENGINEER SPECIALIST Gender Identity Not on file Sexual Orientation Not on file documented as of this encounter Plan of Treatment Upcoming Encounters Date Type Department Care Team (Late st Contact Info) Description 08/10/2025 8:00 AM CDT Appointment [facility] [address] [facility] [address] [place] [address] [place] [address] [phone] Mary Carlos MD [address] [phone] Karmen Gómez, Occupational Therapist [address] [place] [address] 08/16/2025 8:00 AM CDT Appointment [facility] ANTONIA [address] [facility] [address] [place] [address] Mary Carlos MD [address] [place] [phone] Karmen Gómez, Occupational Therapist [address] [place] [address] [phone] 08/23/2025 8:00 AM CDT Appointment [facility] ANTONIA [address] [facility] [address] [place] [address] Mary Carlos MD [address] [place] [address] [phone] Karmen Gómez, Occupational Therapist [address] [place] [address] 08/30/2025 11:00 AM ENGINEER SPECIALIST Appointment [facility] [address] [place] [address] [address] [place] [phone] Mary Carlos MD [address] [facility] [address] [place] [address] Karmen Gómez, Occupational Therapist [address] [place] [address] [address] [place] [address] 09/09/2025 11:00 AM ENGINEER SPECIALIST Appointment [facility] ANTONIA [address] [place] [address] [address] [place] [phone] Mary Carlos MD [address] [facility] [address] [place] [address] Karmen Gómez Occupational Therapist [address] [place] [address] [address] [place] [address] 09/15/2025 12:00 PM ENGINEER SPECIALIST Appointment [facility] [address] [place] [address] [address] [place] [phone] Mary Carlos MD [address] [facility] [address] [place] [phone] Karmen Gómez, Occupational Therapist [address] [place] [address] [address] [place] [address] 06/08/2026 11:45 AM CDT Office Visit [facility] [address] [place] [address] [address] [place] [phone] Mary Carlos MD [address] [place] [address], [place] [address] documented as of this encounter Visit Diagnoses Not on filedocumented in this encounter Care Teams Track Service Person Relationship Specialty Start Date End Date Graciela Winters MD [address] [facility] [place] [address] PCP - General Family Practice 06/09/25 documented as of this encounter
--- OUTSIDE RECORDS SUMMARY | 2025-08-03 12:57 | XMS_ITS | Encounter Summary ---
Author Organization [facility] Address [address] [place] [address] Care Team Providers Care Master Control Supervisor Name Role Phone Graciela Winters MD Primary Care Provider Encounter Details Date Type Department Care Team (Late st Contact Info) Description 01/18/2000 Outpatient Historical [facility] [place] [address] [facility] [address] [place] [address] Social History Tobacco Use Types Packs/Day Years Used Date Smoking Tobacco: Never Assessed Comments Unknown Sex and Gender Information Value Date Recorded Sex Assigned at Not on file Legal Sex Female 3:36 AM WATER SAFETY INSTRUCTOR Gender Identity Not on file Sexual Orientation Not on file documented as of this encounter Plan of Treatment Upcoming Encounters Date Type Department Care Team (Late st Contact Info) Description 08/10/2025 8:[address] [facility] [address] [address] [place] [address] [place] [address] [facility] [address] [place] [address] Mary Carlos MD [address] [place] [address] Karmen Gómez, Occupational Therapist [address] [place] [address] 08/16/2025 8:00 AM CDT Appointment [facility] [address] [place] [address] Mary Carlos MD [address] [phone] Karmen Gómez, Occupational Therapist [address] [place] [address] [phone] 08/23/2025 8:00 AM CDT Appointment [facility] KNIGHT [address] [place] [phone] Mary Carlos MD [address] [phone] Karmen Gómez, Occupational Therapist [address] [place] [phone] 08/30/2025 11:00 AM WATER SAFETY INSTRUCTOR Appointment [facility] KNIGHT [address] [place] [phone] Mary Carlos MD [address] [phone] Karmen Gómez, Occupational Therapist [address] [place] [phone] 09/09/2025 11:00 AM WATER SAFETY INSTRUCTOR Appointment [facility] SHEASON [address] [place] [address], [place] [phone] Mary Carlos MD [address] [facility] [address] [place] [phone] Karmen Gómez, Occupational Therapist [address] [place] [address] [address] [place] [address] 09/15/2025 12:00 PM WATER SAFETY INSTRUCTOR Appointment [facility] [address] [place] [phone] Mary Carlos MD [address] [place] [address] Karmen Gómez Occupational Therapist [address] [place] [address] [address] [place] [address] 06/08/2026 11:45 AM CDT [facility] Juan Knight [address] [facility] [address] [place] [phone] Mary Carlos MD [address] [place] [phone] documented as of this encounter Visit Diagnoses Not on filedocumented in this encounter Care Teams Master Control Supervisor Relationship Specialty Start Date End Date Graciela Winters MD 3417 [place] [address] PCP - General Family Practice 06/09/25 documented as of this encounter
--- OUTSIDE RECORDS SUMMARY | 2025-08-03 12:57 | XMS_ITS | Encounter Summary ---
Author Organization [facility] Address [address] [place] [address] Care Team Providers Care Clinical Reimbursement Specialist Name Role Phone Graciela Winters MD Primary Care Provider Encounter Details Date Type Department Care Team (Late st Contact Info) Description 12/26/1998 Outpatient Historical [facility] [place] [address] [facility] [address] [place] [address] Social History Tobacco Use Types Packs/Day Years Used Date Smoking Tobacco: Never Assessed Comments Unknown Sex and Gender Information Value Date Recorded Sex Assigned at Not on file Legal Sex Female 3:36 AM AUTOMOTIVE SALESPERSON Gender Identity Not on file Sexual Orientation Not on file documented as of this encounter Plan of Treatment Upcoming Encounters Date Type Department Care Team (Late st Contact Info) Description 08/10/2025 8:[address] [facility] [address] [place] [address] [place] [address] [facility] [address] [place] [address] Mary Carlos MD [address] [place] [address] Karmen Gómez, Occupational Therapist [address] [place] [address] 08/16/2025 8:00 AM CDT Appointment [facility] [id number] [place] [phone] Mary Carlos MD [address] [phone] Karmen Gómez, Occupational Therapist [address] [place] [address] [phone] 08/23/2025 8:00 AM CDT Appointment [facility] [address] [place] [phone] Mary Carlos MD [address] [phone] Karmen Gómez, Occupational Therapist [address] [place] [address] [phone] 08/30/2025 11:00 AM AUTOMOTIVE SALESPERSON Appointment [facility] [address] [place] [phone] Mary Carlos MD [address] [phone] Karmen Gómez, Occupational Therapist [address] [place] [phone] 09/09/2025 11:00 AM AUTOMOTIVE SALESPERSON Appointment [facility] SHEASON [address] [place] [address], [place] [phone] Mary Carlos MD [address] [facility] [address] [place] [phone] Karmen Gómez, Occupational Therapist [address] [place] [address] [address] [place] [address] 09/15/2025 12:00 PM AUTOMOTIVE SALESPERSON Appointment [facility]NIGHT [address] [place] [phone] Mary Carlos MD [address] [place] [phone] Karmen Gómez Occupational Therapist [address] [place] [address] [address] [place] [address] 06/08/2026 11:45 AM CDT Office Visit [facility] Juan Knight [address] [facility] [address] [place] [phone] Mary Carlos MD [address] [place] [phone] documented as of this encounter Visit Diagnoses Not on filedocumented in this encounter Care Teams Clinical Reimbursement Specialist Relationship Specialty Start Date End Date Graciela Winters MD [address] [facility] [place] [address] PCP - General Family Practice 06/09/25 documented as of this encounter
--- OUTSIDE RECORDS SUMMARY | 2025-08-03 12:57 | XMS_ITS ---
Author Organization [facility] Address [address] [facility] [place] [address] Phone Care Team Providers Care Decision Analyst Name Role Phone Graciela Winters MD Primary Care Provider Active Problems Patient Care Coordination No te Formatting of this note migh t be different from the original. Primary Care: Presley Burkett MD Ref[place]: [place] [address] [facility] [address] [place] [address] Other: Dr Melida Escamilla Problem Noted Date Diagnosed Date Breast cancer metastasized to axillary lymph nod e 02/27/2017 S/P right mastectomy 02/22/2017 Infiltrating ductal carcinoma of right female br east 01/07/2017 Cancer Staging:Pathologic:Stage IIIC(T2(3), N3c, cM0) - Signed by Audi Lerner MD on 02/27/2017 Overview (12/02/2017): right breast/SBR SCORE 7/PENNY SCORE GRADE 2 CARCINOMA Care Plan for Breast Cancer Prepared by: Isatu Alcaraz on 12/02/2017 at [facility] General Information Patient Name NILA JIMENES Phone (home) Date of 1960 Age at diagnosis 56 Support contact Care team Cage Tender/oncologist Dr. Lerner, General/breast surgeon MELIDA ESCAMILLA, Radiation oncologist Chuck Rose Plastic surgeon Primary care physician Dr. Burkett OB-TAVERN CAR ATTENDANT Dr. Sotelo ([facility]) Nurse/nurse practitioner Isatu Alcaraz, Mental health/social work manager Coordination of care Background Information Family history Second degree relative with breast cancer, mother with uterine cancer, Genetic testing Not applicable Echocardiogram or MUGA result EF = 61% Additional comments On 01/02/17 presented with 6 month history of right breast pain and inverted nipple. Diagnostic mammogram at [facility] demonstrated an irregularity and calcifications in [...] carcinoma which was high grade with a Penny score of 8 out of 9, measuring 3 cm, 2.2 cm, 1.2 cm and 0.7 cm. 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 Surgical margins were negative. [place] lymph node biopsy showed cancer in 1 of 1 node. Formal axillary node dissection showed disease in 10 of 18 nodes. On 02/25/2017 a staging PET/CT scan demonstrated mildly hypermetabolic lymph nodes in the right supraclavicular region, concerning for cancer involvement. Right breast Definitive breast surgery Mastectomy on 02/14/2017 [place] node biopsy Yes, 02/14/2017 Axillary dissection Yes, [...] At this time will try alternative approaches Robert-E Jonathon Soell- # [phone] Referral to integrative medicine Cancer Support Community [...] under insomnia Discussed staying organized, keeping a systems requirements planner Lymphedema Referral to lymphedema physical therapy [...] <1 drink, 2-3x per week Referral to Livestrong program at local [facility] * Dr. Beltran's anti-inflammatory diet: [email or web address] Surveillance When/How often Coordinating provider Medical history/physical [...] information found. Past Treatment and Therapy Plans ONCOLOGY THERAPY PLAN Plan Name Start Date Discontinue Date Treatment Medications Discontinue Reason Plan Provider BLANK SUPPORTIVE CARE THERAPY PLAN 06/13/2017 08/11/2024 No medications scheduled. Change in Level of Care Mary Carlos MD ONCOLOGY TREATMENT Plan Name Start Date Discontinue Date Treatment Medications Discontinue Reason Plan Provider Cycles OP ONC BREAST DOCETAXEL_PERT UZUMAB_TRASTUZ UMAB EVERY 3 WEEKS X 4 then FEC x 3 FOLLOWED BY TRASTUZUMAB TO COMPLETE 1 YEAR 03/20/20 17 04/01/2019 cycloPHOSphamide (CYTOXAN) IVPBDOCEtaxel (TAXOTERE) IVPBepiRUBicin (ELLENCE) 50 mg/25 mLfluoruracil (5-FU) injectable syringepertuzumab (PERJETA) IVPBtrastuzumab (HERCEPTIN) IVPB Therapy Complete Audi Lerner MD 20 of 20 cycles started Lifetime Dose Tracking * Chemical Lifetime Dose Automatic Entry Manual Entr y epirubicin 302.367 mg/m2 (501 mg) 302.367 mg/m2 (501 mg) 0 mg/m2 (0 mg) trastuzumab 104.803 mg/kg (6,278 mg) 104.803 mg/kg (6 ,278 mg) 0 mg/kg (0 mg) Effective Dose 104.1 mSv 104.1 mSv 0 mSv Total DLP 4,361 DLP 4,361 DLP 0 DLP CTDIvol Max 197.3 mGy 197.3 mGy 0 mGy CTDIvol Min 153.3 mGy 153.3 mGy 0 mGy Resolved Problems Problem Noted Date Diagnosed Date Resolved Date ER+ (estrogen receptor positive status) 01/07/2017 01/24/2017 Overview (01/15/2017): 10% STRONG ER+ ND- carcinoma of breast 12/26/2016 01/24/2017 Overview (01/15/2017): ND LESS THAN 1% ER 10% STRONG
--- OUTSIDE RECORDS SUMMARY | 2025-08-03 12:57 | XMS_ITS | Clinical Summary ---
Author Organization [facility] Address [facility] [place] [address] Care Team Providers Care Drying Unit Felting Machine Operator Name Role Phone Scooter Lester MD Primary Care Provider + Allergies Active Allergy Reactions Criticality Noted Date Comments Cephalexin Diarrhea,Stomach ups et,Nausea And Vomiting Medium 06/13/2017 Medications exemestane (AROMASIN) 25 mg tablet 1 Active HYDROcodone-zuri taminophen (NORCO) 5-325 mg per tablet 1 Active oxyCODONE (ROXICODONE) 5 mg immediate release tabletIndicatio ns:Pain TAKE ONE TO TWO TABLETS EVERY 4 TO 6 HOURS PRN PAIN 20 tablet 1 Active Additional Information Patient not taking.Reported on 01/09/2022 cholecalciferol (VITAMIN D-3) 2000 unit tablet Take 2,000 Units by mouth daily Active magnesium citrate solution Take 296 mL by mouth once Active zolpidem (AMBIEN) 5 mg tablet 1 Active Active Problems Problem Noted Date Diagnosed Date Breast cancer metastasized to axillary lymph nod e 02/27/2017 S/P right mastectomy 02/22/2017 Infiltrating ductal carcinoma of right female br east 01/07/2017 Overview (09/04/2021): right breast/SBR SCORE 7/PENNY SCORE GRADE 2 CARCINOMA Care Plan for Breast Cancer Prepared by: Isatu Alcaraz on 12/02/2017 at [facility] General Information Patient Name NILA JIMENES Phone (home) Date of 1960 Age at diagnosis 56 Support contact Care team Sheet Metal Worker Helper/oncologist Dr. Lerner, General/breast surgeon JONATHON ESCAMILLA, Radiation oncologist Chuck Rose Plastic surgeon Primary care physician Dr. Burkett OB-CASING WRINGER OPERATOR Dr. Sotelo ([facility]) Nurse/nurse practitioner Isatu Alcaraz, Mental health/social services technician Coordination of care Background Information Family history Second degree relative with breast cancer, mother with uterine cancer, Genetic testing Not applicable Echocardiogram or MUGA result EF = 61% Additional comments On 01/02/17 presented with 6 month history of right breast pain and inverted nipple. Diagnostic mammogram at [facility] demonstrated an irregularity and calcifications in [...] carcinoma which was high grade with a [place] score of 8 out of 9, measuring 3 cm, 2.2 cm, 1.2 cm and 0.7 cm. 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 Surgical margins were negative. [place] lymph node biopsy showed cancer in 1 of 1 node. Formal axillary node dissection showed disease in 10 of 18 nodes. On 02/25/2017 a staging PET/CT scan demonstrated mildly hypermetabolic lymph nodes in the right supraclavicular region, concerning for cancer involvement. Right breast Definitive breast surgery Mastectomy on 02/14/2017 [place] node biopsy Yes, 02/14/2017 Axillary dissection Yes, [...] will try alternative approaches Lesley Bower- # [phone] Referral to integrative medicine Cancer Support Community [...] under insomnia Discussed staying organized, keeping a associate financial planner Lymphedema Referral to lymphedema physical therapy [...] week Referral to Livestrong program at local [facility] * Dr. Beltran's anti-inflammatory diet: [email or web address] Surveillance When/How often Coordinating provider Medical history/physical [...] independent medical judgment of the treating professional. 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 Gender Identity Not on file Sexual Orientation Not on file Obstetrics History Last Filed Vital Signs Vital Sign Reading Time Taken Comments Blood Pressure 144/67 01/09/2022 9:29 AM CDT Pulse 78 01/09/2022 9:29 AM CDT Temperature - - Respiratory Rate 18 01/09/2022 9:29 AM CDT Oxygen Saturation 98% 01/09/2022 9:29 AM CDT Inhaled Oxygen Concentration - - Weight 71.7 kg (158 lb) 08/14/2021 10:14 AM CDT Height 165.1 cm (5' 5) 08/14/2021 10:14 AM CDT Body Mass Index 26.29 08/14/2021 10:14 AM CDT Plan of Treatment Not on file [facility] Care Teams Drying Unit Felting Machine Operator Relationship Specialty Start Date End Date Scooter Lester MD [address] [facility] [place] [address] PCP - General Internal Medicine 08/21/21
--- OUTSIDE RECORDS SUMMARY | 2025-08-03 12:57 | XMS_ITS | Clinical Summary ---
Author Organization [facility] Address [address] [place] [address] Phone Care Team Providers Care Power Plant Operator Apprentice Name Role Phone Graciela Winters MD Primary Care Provider Allergies Active Allergy Reactions Criticality Noted Date Comments Cephalexin Diarrhea,Nausea and Vomiting Medium 017 Medications MULTIVIT-MINERA LS/FERROUS FUM (MULTI VITAMIN ORAL) Take by mouth. Activ e magnesium citrate solution Take 296 mL by mouth one time only. Active cholecalciferol , Vitamin D3, 50 mcg (2,000 unit) Tablet Take 2,000 Units by mouth daily. Active ascorbic acid, vitamin C, (VITAMIN C) 1,000 mg Tablet Take 1,000 mg by mouth daily. Active CALCIUM ORAL Take by mouth. Ac tive methenamine-met hylene blue-Na biphosphate-phe nyl salicylate-hyos cyamine (URIBEL) 118-10-40.8-36 mg cap Take 1 Capsule by mouth 4 times daily. 20 Capsule 1 3 Active Additional Information Patient not taking.Reported on 03/17/2024 Magnesium Oxide 420 mg Tablet Take 400 mg by mouth daily. Active coenzyme Q10 200 mg Capsule Take 200 mg by mouth daily. Active TURMERIC ORAL Take by mouth daily. With curcumin Active OMEGA-3 FATTY ACIDS-FISH OIL ORAL Take by mouth. Activ e ZINC GLUCONATE ORAL Take by mouth. 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 Primary Care: Presley Burkett MD Referring Provider: Martin Sotelo MD [address] [place] [address] [address] [place] [address] Other: Dr Melida Browning Problem Noted Date Diagnosed Date Breast cancer metastasized to axillary lymph nod e 02/27/2017 S/P right mastectomy 02/22/2017 Infiltrating ductal carcinoma of right female br east 01/07/2017 Cancer Staging:Pathologic:Stage IIIC(T2(3), N3c, cM0) - Signed by Audi Lerner MD on 02/27/2017 Overview (12/02/2017): right breast/SBR SCORE 7/PENNY SCORE GRADE 2 CARCINOMA Care Plan for Breast Cancer Prepared by: Isatu Alcaraz on 12/02/2017 at [facility] General Information Patient Name NILA JIMENES Phone (home) Date of 1960 Age at diagnosis 56 Support contact Care team Hide Buyer/oncologist Dr. Lerner, General/breast surgeon MELIDA BROWNING, Radiation oncologist Chuck Rose Plastic surgeon Primary care physician Dr. Burkett OB-SECURITY ASSURANCE ANALYST Dr. Sotelo ([facility]) Nurse/nurse practitioner Isatu Alcaraz, Mental health/professor of social work Coordination of care Background Information Family history Second degree relative with breast cancer, mother with uterine cancer, Genetic testing Not applicable Echocardiogram or MUGA result EF = 61% Additional comments On 01/02/17 presented with 6 month history of right breast pain and inverted nipple. Diagnostic mammogram at [facility] demonstrated an irregularity and calcifications in [...] carcinoma which was high grade with a [place] score of 8 out of 9, measuring 3 cm, 2.2 cm, 1.2 cm and 0.7 cm. 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 Surgical margins were negative. [place] lymph node biopsy showed cancer in 1 of 1 node. Formal axillary node dissection showed disease in 10 of 18 nodes. On 02/25/2017 a staging PET/CT scan demonstrated mildly hypermetabolic lymph nodes in the right supraclavicular region, concerning for cancer involvement. Right breast Definitive breast surgery Mastectomy on 02/14/2017 [place] node biopsy Yes, 02/14/2017 Axillary dissection Yes, [...] will try alternative approaches Lesley Bower- # [phone] Referral to integrative medicine Cancer Support Community [...] under insomnia Discussed staying organized, keeping a certified financial planner Lymphedema Referral to lymphedema physical [...] <1 drink, 2-3x per week Referral to Spor Chargers program at local [facility] * Dr. Beltran's anti-inflammatory diet: [email or web address] Surveillance When/How often Coordinating provider Medical history/physical exam: Yrs 1-[address] Lerner, Dr. Browning Medical history/physical exam: Yrs 4,5 Every 6 [...] Dr. Lerner Mammogram April [address] Browning End Notes Note 1: Important caution. This [...] independent medical judgment of the treating professional. Resolved Problems Problem Noted Date Diagnosed Date Resolved Date ER+ (estrogen receptor positive status) 01/07/2017 01/24/2017 Overview (01/15/2017): 10% STRONG ER+ NV- carcinoma of breast 12/26/2016 01/24/2017 Overview (01/15/2017): NV LESS THAN 1% ER 10% STRONG Encounters Date Type Department Care Team Description 07/13/2025 External Device Data ST[facility] ABSTRACTION Provider, Abstract 06/30/2025 External Device Data ST[facility] ABSTRACTION Provider, Abstract 06/22/2025 8:38 AM CDT - 06/22/2025 11:59 PM CDT Hospital Encounter [facility] Bone Density [address] [place] [address] Mary Carlos MD Discharge Disposition: Home or Self Care 06/22/2025 Results Follow-Up [facility] Oncology and Hematology [place] [address] [place] [address] Mary Carlos MD XR DEXA BONE DENSITY AXIAL 1 OR MORE SITES 06/09/2025 2:15 PM CDT Office Visit [facility] Oncology and Hematology [place] [address] [facility] [address] [place] [address] Mary Carlos MD Carcinoma of right breast metastatic to axillary lymph node (CMS/HCC) (Primary Dx); Infiltrating ductal carcinoma of right female breast (CMS/HCC); Osteopenia of multiple sites; Lymphedema of right arm; Use of aromatase inhibitors; Menopause 06/08/2025 External Device Data STL ABSTRACTION Provider, Abstract 05/12/2025 External Device Data STL ABSTRACTION Provider, Abstract from Last 3 Months Family History Medical History Relation Name Comments Other Father blood clot in l eg Prostate Cancer Father Uterine Cancer Mother Breast Cancer Other matGREATAUNT Hodgkin's lymphoma Sister NON Celiac Disease Neg Hx Colon Cancer Neg Hx Crohn's Disease Neg Hx Inflammatory Bowel Disease Neg Hx Ulcerative Colitis Neg Hx Relation Name Status Comments Father Mother Alive Other matGREATAUNT Sister Alive Social History Tobacco Use Types Packs/Day Years Used Date Smoking Tobacco: Never Smokeless Tobacco: Never Tobacco Cessation:Counseling Given: Not Answered Alcohol Use Standard Drinks/Week Comments No 0 [...] on file Legal 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 Gender Identity Not on file Sexual Orientation Not on file Last Filed Vital Signs Vital Sign Reading Time Taken Comments Blood Pressure 134/81 06/09/2025 2:08 PM CDT Pulse 88 06/09/2025 2:08 PM CDT Temperature 37.2 C (98.9 F) 06/09/2025 2:08 PM CDT Respiratory Rate 12 06/26/2024 8:30 AM CDT Oxygen Saturation 100% 06/09/2025 2:08 PM CDT Inhaled Oxygen Concentration - - Weight 64.4 kg (142 lb) 06/09/2025 2:08 PM CDT Height 165.1 cm (5' 5) 06/09/2025 2:08 PM CDT Body Mass Index 23.63 06/09/2025 2:08 PM CDT Plan of Treatment Upcoming Encounters Date Type Department Care Team (Late st Contact Info) Description 08/10/2025 8:00 AM CDT Appointment [facility] [place] [address] [address] [place] [phone] [place] [address] [facility] [address] [place] [address] Mary Carlos MD [address] [facility] [address] [place] [address] Karmen Gómez, Occupational Therapist [address] [place] [address] 08/16/2025 8:00 AM CDT Appointment [facility] [place] [address] [place] [address] [address] [place] [address] Mary Carlos MD [address] [facility] [address] [place] [address] Karmen Gómez, Occupational Therapist [address] [place] [address] 08/23/2025 8:00 AM CDT Appointment [facility] [address] [place] [phone] Mary Carlos MD [address] [facility] [address] [place] [phone] Karmen Gómez, Occupational Therapist [address] [place] [address] 08/30/2025 11:00 AM POLICE MANAGER Appointment [facility] [address] [place] [address] [address] [place] [address] Mary Carlos MD [address] [facility] [address] [place] [phone] Karmen Gómez, Occupational Therapist [address] [place] [phone] 09/09/2025 11:00 AM POLICE MANAGER Appointment [facility] [address] [facility] [address] [place] [phone] Mary Carlos MD [address] [facility] [address] [place] [phone] Karmen Gómez, Occupational Therapist [address] [place] [address] [address] [place], [place] [phone] 09/15/2025 12:00 PM POLICE MANAGER Appointment [facility] [place] [address] [facility] [address] [place] [phone] Mary Carlos MD [address] [facility] [address] [place] [address] Karmen Gómez Occupational Therapist [address] [place] [address] [address] [place] [address] 06/08/2026 11:45 AM CDT Office Visit [facility] [phone] [place] [address] [address] [place] [phone] Mary Carlos MD [address] [facility] [address] [place] [address] Health Maintenance Due Date Last Done Comments DTAP/TDAP/TD VACCINES (1 - Tdap) 1978 PNEUMOCOCCAL VACCINE 50+ YEA RS (1 of 2 - PCV) 1978 ZOSTER VACCINE (1 of 2) 1978 FIT-DNA Q 3 years 2004 FIT/FOBT Q 1 year 2004 Flex Sig/CT Colonography Q 5 years 2004 INFLUENZA VACCINE (#1) 2025 09/19/2022 BREAST CANCER SCREENING 05/25/2026 05/25/20 25, 05/25/2025, 05/21/2024, Additional history exists OSTEOPOROSIS SCREENING 06/22/2030 , 06/05/2023, 04/05/2021 COLORECTAL SCREENING 03/26/2031 03/26/2024, 03/26/2024, 01/30/2017 Colorectal Cancer Screening 03/26/2031 RSV VACCINE (60+ or ) (1 - 1-dose 75+ series) 2034 Medical Devices Implanted Type Area Drop Forge Hand Device Identifier Shelf Expiration Date Model / Serial / Lot Hemostatic Surgicel 4x8in 1952 - [id number] Implanted:Qty: 4 on 02/14/2017 [place] Melida [place] [facility] [place]ostatic Right: Breast [employer] 04/26/20211951 / / [id number] Hemostatic Surgicel 2x14in 1951 - [id number] Implanted:Qty: 1 on 02/14/2017 by Melida Browning [place] [facility] [place]ostatic Right: Breast [employer] 12/25/20201950 / / [id number] Explanted Type Area Drop Forge Hand Device Identifier Shelf Expiration Date Model / Serial / Lot Port Pwrprt Clearvue Isp 8fr [id number] - [id number] Implanted:Qty: 1 on 03/04/2017 by May Apodaca [place] [facility] [place]planted:Qty: 1 on 06/26/2024 by May Apodaca [place] [facility] Port Left: Chest CR [employer]ARD[employer] 05/27/2018 [id number] / / [id number] Procedures Procedure Name Priority Date/Time Associated Diagnosis Comments XR DEXA BONE DENSITY AXIAL 1 OR MORE SITES Routine 06/22/2025 9:27 AM CDT Osteopenia of multiple sites COLONOSCOPY REPORT 03/26/2024 12 :56 PM CDT MAMMO DIAG UNI LEFT 3D BRODERICK W OR WO CAD Routine 03/11/2020 12:30 PM CDT Breast pain, left Infiltrating ductal carcinoma of right female breast (CMS/HCC) from Last 3 Months or Most Recently Relevant to Health Maintenance Results * XR DEXA BONE DENSITY AXIAL 1 OR MORE SITES (06/22/2025 9:27 AM CDT) Anatomical Region Laterality Modality Digital Radiogra phy 06/22/2025 9:27 AM CDT Impressions 06/22/2025 9:32 AM CDT IMPRESSION: Osteoporosis. Lumbar Spine: T-score: -2.6 Left Femoral Neck: T-score: -2.4 Left Total Femur: T-score: -1.9 Right Femoral Neck: T-score: -2.1 Right Total Femur: T-score: -1.9 FRAX FRACTURE RISK ASSESSMENT: 10-Year probability of fracture Major osteoporotic fracture: 34.5 % Defined as fracture of the spine, hip or shoulder. Hip fracture: 5.2 % This is a summary page. Please refer to the complete detailed report found in: Imaging Section of the [facility] EMR. Definitions: Normal: T-score above -1.0 Osteopenia T-score less than -1.0 and above -2.5 Osteoporosis: T-score <= -2.5 Note: Clinical Osteoporosis may be based on other factors besides DXA calculated BMD. Other factors include and are not limited to fragility fractures, subclinical compression fractures,osteopenia and elevated FRAX Scores. A major osteoporotic fracture is defined as a fracture of the spine, forearm, hip or shoulder. Dictated by Dr. Arie Duran MD DICTATION LOCATION: 06/22/2025 9:32 AM CDT EXAMINATION: BONE DENSITY STUDY (DXA) DATE: 06/22/2025 9:27 AM HISTORY: 64 years Female. Postmenopausal. Osteopenia. PROCEDURE: Planar images of the lumbar spine and hip(s). Pump! DEXA scanner for bone mineral density determination (BMD). Prior bone density: 06/05/2023 FINDINGS: Lumbar Spine (L1-L4): T-score: -2.6 Prior T-score: -2.1 Left Femoral Neck: T-score: -2.4 Prior T-score: -2.2 Left Total Femur: T-score: -1.9 Right Femoral Neck: T-score: -2.1 Prior T-score: -1.9 Right Total Femur: T-score: -1.9 TECHNICAL ISSUES: None. Procedure Note Arie Duran MD - 06/22/2025 EXAMINATION: BONE DENSITY STUDY (DXA) DATE: 06/22/2025 9:27 AM HISTORY: 64 years Female. Postmenopausal. Osteopenia. PROCEDURE: Planar images of the lumbar spine and hip(s). Pump! DEXA scanner for bone mineral density determination (BMD). Prior bone density: 06/05/2023 FINDINGS: Lumbar Spine (L1-L4): T-score: -2.6 Prior T-score: -2.1 Left Femoral Neck: T-score: -2.4 Prior T-score: -2.2 Left Total Femur: T-score: -1.9 Right Femoral Neck: T-score: -2.1 Prior T-score: -1.9 Right Total Femur: T-score: -1.9 TECHNICAL ISSUES: None. IMPRESSION: Osteoporosis. Lumbar Spine: T-score: -2.6 Left Femoral Neck: T-score: -2.4 Left Total Femur: T-score: -1.9 Right Femoral Neck: T-score: -2.1 Right Total Femur: T-score: -1.9 FRAX FRACTURE RISK ASSESSMENT: 10-Year probability of fracture Major osteoporotic fracture: 34.5 % Defined as fracture of the spine, hip or shoulder. Hip fracture: 5.2 % This is a summary page. Please refer to the complete detailed report found in: Imaging Section of the [facility] EMR. Definitions: Normal: T-score above -1.0 Osteopenia T-score less than -1.0 and above -2.5 Osteoporosis: T-score <= -2.5 Note: Clinical Osteoporosis may be based on other factors besides DXA calculated BMD. Other factors include and are not limited to fragility fractures, subclinical compression fractures,osteopenia and elevated FRAX Scores. A major osteoporotic fracture is defined as a fracture of the spine, forearm, hip or shoulder. Dictated by Dr. Arie Duran MD DICTATION LOCATION: 1 us Mary Carlos MD DIAGNOSTIC IMAGING ORDERABLE S Final Result * COLONOSCOPY REPORT (03/26/2024 12:56 PM CDT) Narrative Procedure Note Kennedy Castillo MD - 03/26/2024 12:56 PM CDT [facility] Patient Name: Nila Jimenes Procedure Date: 03/26/2024 Date of : 1960 Attending MD: Kennedy Castillo MD, Procedure: Colonoscopy Indications: Screening for colorectal malignant neoplasm Providers: Kennedy Castillo MD Referring MD: Scooter Lester MD Medicines: Monitored Anesthesia Care Complications: No immediate complications. Procedure: Informed consent was obtained for the procedure, including moderate sedation after risks were discussed. Based on the pre-procedure assessment, including review of the patient's medical history, medications, allergies, and review of systems, the patient was deemed to be an appropriate candidate for sedation. A timeout was performed. Continuous ECG monitoring, pulse oximetry, blood pressure monitoring, and direct observation were performed. The Colonoscope was introduced through the anus and advanced to the cecum, identified by appendiceal orifice and ileocecal valve. The colonoscopy was performed without difficulty. The patient tolerated the procedure well. The quality of the bowel preparation was good. The quality of the bowel preparation was evaluated using the BBPS ([place] Bowel Preparation Scale) with scores of: Right Colon = 3, Transverse Colon = 3 and Left Colon = 3 (entire mucosa seen well with no residual staining, small fragments of stool or opaque liquid). The total BBPS score equals 9. Estimated Blood Loss: Estimated blood loss was minimal. Findings: The perianal and digital rectal examinations were normal. A diminutive polyp was found in the transverse colon. The polyp was sessile. The polyp was removed with a cold snare. Resection and retrieval were complete. External and internal hemorrhoids were found during retroflexion. The hemorrhoids were medium-sized and Grade I (internal hemorrhoids that do not prolapse). The exam was otherwise without abnormality on direct and retroflexion views. Impression: - One diminutive polyp in the transverse colon, removed with a cold snare. Resected and retrieved. - External and internal hemorrhoids. - The examination was otherwise normal on direct and retroflexion views. Recommendation: - Discharge patient to home (with escort). - Await pathology results. - Repeat colonoscopy in 7 years for surveillance based on pathology results. Procedure Code(s): --- Professional --- 24039, Colonoscopy, flexible; with removal of tumor(s), polyp(s), or other lesion(s) by snare technique CPT copyright 2020 [employer]. All rights reserved. The codes documented in this report are preliminary and upon tank charger review may be revised to meet current compliance requirements. Kennedy Castillo MD 03/26/2024 12:55:52 PM This report has been signed electronically. 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 Advance Directive Living Will 02/28/2018 1:26 PM Advance Directive POA 03/07/2017 10:54 AM Advance Directive POA * Full Code (Latest Code Status on File) Date Activated Date Inactivated Comments 02/28/2018 1:59 PM 02/28/2018 6:35 PM * Full Code Date Activated Date Inactivated Comments 03/04/2017 8:56 AM 03/04/2017 12:47 PM * Full Code Date Activated Date Inactivated Comments 02/14/2017 11:04 AM 02/15/2017 1:06 PM * Full Code Date Activated Date Inactivated Comments 02/14/2017 8:48 AM 02/14/2017 11:04 AM * Full Code Date Activated Date Inactivated Comments 02/14/2017 7:08 AM 02/14/2017 8:48 AM Care Teams Power Plant Operator Apprentice Relationship Specialty Start Date End Date Graciela Winters MD [address] [place] [address] PCP - General Family Practice 06/09/25
[2025-08-03 13:19] LABS: Anion Gap 4 mmol/L (4-12); Blood Urea Nitrogen 17 mg/dL (7-17); Calcium 10.8 mg/dL (8.4-10.2); Carbon Dioxide 28 mmol/L (22-30); Chloride 105 mmol/L (98-107); Estimated Glomerular Filt Rate > 60; Glucose 87 mg/dL (65-110); Potassium 4.1 mmol/L (3.4-5.0); Sodium 137 mmol/L (137-145)
== END 2025-08-03 11:41 | disposition home or self-care (01) ==
LOC: ANHGOSHLAB 11:40
PROVIDERS: PCP Family Medicine; Visit Provider Nurse Practitioner Family
DX: E83.52 Hypercalcemia (principal)
CPT/HCPCS: 36415; 80048

== ENCOUNTER 2025-08-18 10:26 | Outpatient (CLI) | payer MEDICARE, SELFPAY ==
--- OUTSIDE RECORDS SUMMARY | 2025-08-18 12:47 | XMS_ITS | Clinical Summary ---
Author Organization [facility] Address [address] [place] [address] Phone Care Team Providers Care Manager Of Project Management Name Role Phone Graciela Winters MD Primary [...] metastatic to axillary lymph node,Use of aromatase inhibitors,Mary pause TAKE 1 TABLET(25 MG) BY MOUTH DAILY AFTER BREAKFAST 90 Tablet 3 5 Active Active Problems Patient Care Coordination No te Formatting of this note migh t be different from the original. Primary Care: Presley Burkett MD Referring Provider: Martin Sotelo MD [address] [place] [address] [address] [place] [address] Other: Dr Melida Browning Problem Noted Date [...] Prepared by: Isatu Alcaraz on 12/02/2017 at [facility] General Information Patient Name NILA JIMENES Phone (home) Date of 1960 Age at diagnosis 56 Support contact Care team Web Content Director/oncologist Dr. Lerner, General/breast surgeon MELIDA BROWNING, Radiation oncologist Chuck Rose Plastic surgeon Primary care physician Dr. Burkett OB-WINDMILL TECHNICIAN Dr. Sotelo ([facility]) Nurse/nurse practitioner Isatu Alcaraz, Mental health/social media designer Coordination of care Background Information Family history Second degree relative with breast cancer, mother with uterine cancer, Genetic testing Not applicable Echocardiogram or MUGA result EF = 61% Additional comments On 01/02/17 presented with 6 month history of right breast pain and inverted nipple. Diagnostic mammogram at [facility] demonstrated an irregularity and calcifications in [...] carcinoma in situ. Surgical margins were negative. [place] lymph node biopsy showed cancer in 1 of 1 node. Formal axillary node dissection showed disease in 10 of 18 nodes. On 02/25/2017 a staging PET/CT scan demonstrated mildly hypermetabolic lymph nodes in the right supraclavicular region, concerning for cancer involvement. Right breast Definitive breast surgery Mastectomy on 02/14/2017 [place] node biopsy Yes, 02/14/2017 Axillary dissection Yes, [...] will try alternative approaches Lesley Bower- # [phone] Referral to integrative medicine Cancer Support Community [...] under insomnia Discussed staying organized, keeping a category planner Lymphedema Referral to lymphedema physical therapy [...] <1 drink, 2-3x per week Referral to CriticalMetrics program at local [facility] * Dr. Beltran's anti-inflammatory diet: [email or web address] Surveillance When/How often Coordinating provider Medical history/physical [...] 01/07/2017 01/24/2017 Overview (01/15/2017): 10% STRONG ER+ [place]- carcinoma of breast 12/26/2016 01/24/2017 Overview (01/15/2017): [place] LESS THAN 1% ER 10% STRONG Encounters Date Type Department Care Team Description 08/10/2025 8:00 AM CDT - 08/10/2025 11:59 PM CDT Hospital Encounter [facility] [address] [place] [address] Anjali Lacey MD Sleckman, Bethany, MD Showalter, Jennifer, Occupational Therapist Lymphedema of right arm Discharge Disposition: Home or Self Care 07/13/2025 External Device Data STL ABSTRACTION Provider, Abstract 06/30/2025 External Device Data STL ABSTRACTION Provider, Abstract 06/22/2025 8:38 AM CDT - 06/22/2025 11:59 PM CDT [facility] [address] [address] [place] [phone] Mary Carlos MD Discharge Disposition: Home or Self Care 06/22/2025 Results Follow-Up [facility] Oncology and Hematology Juan Knight [address] [address] [facility] [address] [place] [phone] Mary Carlos MD XR DEXA BONE DENSITY AXIAL 1 OR MORE SITES 06/09/2025 2:15 PM CDT Office Visit [facility] Oncology and Hematology Juan Knight [address] [address] [facility] [address] [place] [phone] Mary Carlos MD Carcinoma of right breast [...] on file Legal Sex Female 3:36 AM SQUILGEER Gender Identity Not on file Sexual Orientation [...] Care Team (Late st Contact Info) Description 08/30/2025 11:00 AM SQUILGEER Appointment [facility] [place] KNIGHT [address] [facility] [address] [place] [phone] Mary Carlos MD [address] [facility] [address] [place] [address] Karmen Gómez, Occupational Therapist [address] [place] [address] [address] [place], [place] [phone] 09/15/2025 12:00 PM SQUILGEER Appointment [facility] J[address] K[address]IGHT [address] [facility] [address] [place] [phone] Mary Carlos MD [address] [facility] [address] [place] [id number] Karmen Gómez, Occupational Therapist [address] [place] [address] [address] [place] [address] 06/08/2026 11:45 AM CDT Office Visit [facility] Oncology and Hematology Juan Knight [id number] [place] [address] [address] [place] [phone] Mary Carlos MD [address] [facility] [address] [place] [id number] Health Maintenance Due Date Last Done Comments DTAP/TDAP/TD VACCINES (1 - Tdap) 1978 PNEUMOCOCCAL VACCINE 50+ YEA RS (1 of 2 - PCV) 1978 ZOSTER VACCINE (1 of 2) 1978 FIT-DNA Q 3 years 2004 FIT/FOBT Q 1 year 2004 Flex Sig/CT Colonography Q 5 years 2004 INFLUENZA VACCINE (#1) 2025 BREAST CANCER SCREENING 05/25/2026 05/25/20 25, 05/25/2025, 05/21/2024, Additional history exists OSTEOPOROSIS SCREENING 06/22/2030 5, 06/05/2023, 04/05/2021 COLORECTAL SCREENING 03/26/2031 03/26/2024, 03/26/2024, 01/30/2017 Colorectal Cancer Screening 03/26/2031 RSV VACCINE (60+ or ) (1 - 1-dose 75+ series) 2034 Medical Devices Implanted Type Area Tire Installer Device Identifier Shelf Expiration Date Model / Serial / Lot Hemostatic Surgicel 4x8in 1952 - [id number] Implanted:Qty: 4 on 02/14/2017 by Melida Browning MD at [facility] Hemostatic Right: Breast [employer] 04/26/20211951 / / [id number] Hemostatic Surgicel 2x14in 1950 - [id number] Implanted:Qty: 1 on 02/14/2017 by Melida Browning MD at [facility] Hemostatic Right: Breast [employer] 12/25/20201950 / / [id number] Explanted Type Area Tire Installer Device Identifier Shelf Expiration Date Model / Serial / Lot Port Pwrprt Clearvue Isp 8fr [id number] - [id number] Implanted:Qty: 1 on 03/04/2017 by May Apodaca MD at [facility] Explanted:Qty: 1 on 06/26/2024 by May Apodaca MD at [facility] Port Left: Chest CR BARD[employer] 05/27/2018 [id number] / / [id number] Procedures Procedure Name Priority Date/Time Associated Diagnosis [...] report found in: Imaging Section of the [facility] EMR. Definitions: Normal: T-score above -1.0 Osteopenia [...] images of the lumbar spine and hip(s). wizboo DEXA scanner for bone mineral density determination [...] images of the lumbar spine and hip(s). wizboo DEXA scanner for bone mineral density determination [...] report found in: Imaging Section of the [facility] EMR. Definitions: Normal: T-score above -1.0 Osteopenia [...] Castillo MD - 03/26/2024 12:56 PM CDT [facility] Patient Name: Nila Jimenes Procedure Date: [...] bowel preparation was evaluated using the BBPS (Carson Bowel Preparation Scale) with scores of: Right [...] pathology results. Procedure Code(s): --- Professional --- 76528, Colonoscopy, flexible; with removal of tumor(s), polyp(s), or other lesion(s) by snare technique CPT copyright 2020 [employer]. All rights reserved. The codes documented in this report are preliminary and upon med specialist review may be revised to meet current compliance requirements. Kennedy Castillo MD 03/26/2024 12:55:52 PM This report has been signed electronically. Number of Addenda: [phone] [place] [address] Kennedy Castillo MD GI PROCEDURE ORDERABLES Final Result from Last 3 Months or Most Recently Relevant to Health Maintenance Insurance AETNA [place] [facility] Address: [address] [address] [employer] Advance Directives For more information, please contact: [phone] Documents on File Type Date Recorded Patient Leather Leveler Expl anation Advance Directive Living Will 02/28/2018 [...] 7:08 AM 02/14/2017 8:48 AM Care Teams Manager Of Project Management Relationship Specialty Start Date End Date Graciela Winters MD [address] [facility] [place] [address] PCP - General Family Practice 06/09/25
--- OUTSIDE RECORDS SUMMARY | 2025-08-18 12:47 | XMS_ITS | Encounter Summary ---
Author Organization [facility] Address [address] [place] [address] Care Team Providers Care Hospitality Intern Name Role Phone Graciela Winters MD Primary Care Provider Encounter Details Date Type Department Care Team (Late st Contact Info) Description 03/18/2017 Chart Note [facility] Radiation Therapy [address] [place] [address] [place] [address] [place] [address] Social History Tobacco Use Types Packs/Day Years Used Date Smoking Tobacco: Never Smokeless Tobacco: Never Alcohol Use Standard Drinks/Week Comments No 0 (1 standard drink = 0.6 oz pur e alcohol) Comments No Sex and Gender Information Value Date Recorded Sex Assigned at Not on file Legal Sex Female 3:36 AM UNDERTAKER HELPER Gender Identity Not on file Sexual Orientation Not on file documented as of this encounter Plan of Treatment Upcoming Encounters Date Type Department Care Team (Late st Contact Info) Description 08/30/2025 11:00 AM UNDERTAKER HELPER Appointment [facility] [place] [place] [phone] Mary Carlos MD [address] [facility] [address] [place] [address] Karmen Gómez Occupational Therapist [address] [facility] [address] [place], [place] [phone] 09/15/2025 12:00 PM UNDERTAKER HELPER Appointment [facility] [address] [address] [place] [phone] Mary Carlos MD [address] [place], [place] [phone] Karmen Gómez Occupational Therapist [address] [facility] [address] [place], [place] [phone] 06/08/2026 11:45 AM CDT Office Visit [facility] Oncology and Hematology Juan Knight [address] [place] [phone] Mary Carlos MD [address] [place], [place] [phone] documented as of this encounter Visit Diagnoses Not on filedocumented in this encounter Care Teams Hospitality Intern Relationship Specialty Start Date End Date Graciela Winters MD [address] [facility] [place] [address] PCP - General Family Practice 06/09/25 documented as of this encounter
--- OUTSIDE RECORDS SUMMARY | 2025-08-18 12:47 | XMS_ITS ---
Author Organization [facility] Address [address] [place] [address] Phone Care Team Providers Care Field Sales Trainer Name Role Phone Graciela Winters MD Primary Care Provider Active Problems Patient Care Coordination No te Formatting of this note migh t be different from the original. Primary Care: Presley Burkett [place]: [place] [address] [facility] [address] [place] [address] Other: Dr Melida Escamilla Problem Noted Date [...] Prepared by: Isatu Alcaraz on 12/02/2017 at [facility] General Information Patient Name NILA JIMENES Phone (home) Date of 1960 Age at diagnosis 56 Support contact Care team Consulting Practice Manager/oncologist Dr. Lerner, General/breast surgeon MELIDA ESCAMILLA, Radiation oncologist Chuck Rose Plastic surgeon Primary care physician Dr. Burkett OB-PURIFYING PLANT OPERATOR Dr. Sotelo ([facility]) Nurse/nurse practitioner Isatu Alcaraz, Mental health/social services manager Coordination of care Background Information Family history Second degree relative with breast cancer, mother with uterine cancer, Genetic testing Not applicable Echocardiogram or MUGA result EF = 61% Additional comments On 01/02/17 presented with 6 month history of right breast pain and inverted nipple. Diagnostic mammogram at [facility] demonstrated an irregularity and calcifications in the [...] carcinoma in situ. Surgical margins were negative. [place] lymph node biopsy showed cancer in 1 of 1 node. Formal axillary node dissection showed disease in 10 of 18 nodes. On 02/25/2017 a staging PET/CT scan demonstrated mildly hypermetabolic lymph nodes in the right supraclavicular region, concerning for cancer involvement. Right breast Definitive breast surgery Mastectomy on 02/14/2017 [place] node biopsy Yes, 02/14/2017 Axillary dissection Yes, [...] try alternative approaches Robert-E Jonathon Soell- # [phone] Referral to integrative medicine Cancer Support Community [...] week Referral to Livestrong program at local [facility] * Dr. Beltran's anti-inflammatory diet: [email or web address] Surveillance When/How often Coordinating provider Medical history/physical [...] 01/07/2017 01/24/2017 Overview (01/15/2017): 10% STRONG ER+ [place]- carcinoma of breast 12/26/2016 01/24/2017 Overview (01/15/2017): [place] LESS THAN 1% ER 10% STRONG
--- OUTSIDE RECORDS SUMMARY | 2025-08-18 12:47 | XMS_ITS | Clinical Summary ---
Author Organization [facility] Address [address] [place] [address] Care Team Providers Care Professor Of Poultry Science Name Role Phone Unavailable Primary Care Provider Unavailabl e Social History Tobacco Use Types Packs/Day Years Used Date Smoking Tobacco: Never Assessed Comments Unknown Sex and Gender Information Value Date Recorded Sex Assigned at Not on file Legal Sex Female 12:21 PM SCHOOL CURRICULUM DEVELOPER Gender Identity Not on file Sexual Orientation [...]
--- OUTSIDE RECORDS SUMMARY | 2025-08-18 12:48 | XMS_ITS | Clinical Summary ---
Author Organization [facility] Address [address] [facility] [place] [address] Care Team Providers Care Chicken Vaccinator Name Role Phone Scooter Lester MD Primary Care Provider [phone] YannAudi owens MD Unavailable [phone] Source Comments [facility],non-owned Affiliates and Associated Physician Practices is amultiple site organization consisting of ambulatory clinics and hospital sitesin [place], [place], [place] and [place]. This disclosure is being madepursuant to the Care Everywhere program and may not contain all information available regarding this patient. Last updated 18.[facility] [employer] Allergies Active Allergy Reactions Criticality Noted Date [...] VITAMIN D PO) Take by mouth. Active [place]-3 Fatty Acids (fish oil delayed release) 1000 MG capsule Take by mouth. Active Misc Natural Products (Turmeric Curcumin) Take by mouth once daily Active Active Problems Patient Care Coordination No te Formatting of this note migh t be different from the original. Primary Care Provider: Scooter Lester MD [address] [place] [address] No known active problems Encounters Date Type Department Care Team Description 05/25/2025 11:00 AM CDT Office Visit [facility] - Surgery [address] [facility], [address] [place] [phone] Melida Browning MD History of breast cancer (Primary Dx); S/P left mastectomy 05/25/2025 10:15 AM CDT - 05/25/2025 11:59 PM CDT Hospital Encounter [facility] [address] [place] [address] Discharge Disposition: Home or Self Care from [...] on file Legal Sex Female 1:05 PM SHELL GRADER Gender Identity Not on file Sexual Orientation Not on file Last Filed Vital Signs Vital Sign Reading Time Taken Comments Blood Pressure 132/73 05/25/2025 10:46 AM CDT Pulse 71 05/25/2025 10:46 AM CDT Temperature 36.2 C (97.1 F) 05/25/2025 10:46 AM CDT Respiratory Rate 16 12/22/2019 9:17 AM SHELL GRADER Oxygen Saturation 100% 03/21/2023 10:43 AM CDT Inhaled Oxygen Concentration - - Weight 66.9 kg (147 lb 6.4 oz) 05/25/2025 10:46 AM CDT Height 165.1 cm (5' 5) 05/25/2025 10:46 AM CDT Body Mass Index 24.53 05/25/2025 10:46 AM CDT Plan of Treatment Upcoming Encounters Date Type Department Care Team (Late st Contact Info) Description 05/26/2026 8:40 AM CDT Appointment [facility] [address] [place] [address] 05/26/2026 9:15 AM CDT Office Visit [facility] [address], [address] [place] [address] Melida Browning MD [address] [place] [address] Health Maintenance Due Date Last [...] Months Insurance AETNA MEDICARE ADV Care Teams Chicken Vaccinator Relationship Specialty Start Date End Date Scooter Lester MD PCP - General Internal Medicine 12/22/19 Audi Lerner MD Hematology and Oncology 03/14/21
--- OUTSIDE RECORDS SUMMARY | 2025-08-18 12:48 | XMS_ITS ---
Author Organization [facility] Address [address] [place] [address] Care Team Providers Care Health Promotion Officer Name Role Phone Scooter Lester MD Primary [...] at diagnosis 56 Support contact Care team Police Commanding Officer/oncologist Dr. Lerner, General/breast surgeon JONATHON ESCAMILLA, Radiation oncologist Chuck Rose Plastic surgeon Primary care physician Dr. Burkett OB-APPLICATIONS SALES REPRESENTATIVE Dr. Sotelo ([facility] [place]) Nurse/nurse practitioner Isatu Alcaraz, Mental health/social worker aide Coordination of care Background Information Family history Second degree relative with breast cancer, mother with uterine cancer, Genetic testing Not applicable Echocardiogram or MUGA result EF = 61% Additional comments On 01/02/17 presented with 6 month history of right breast pain and inverted nipple. Diagnostic mammogram at [facility] demonstrated an irregularity and calcifications in [...] carcinoma which was high grade with a Polk score of 8 out of 9, measuring 3 cm, 2.2 cm, 1.2 cm and 0.7 cm. 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 Surgical margins were negative. [place] lymph node biopsy showed cancer in 1 of 1 node. Formal axillary node dissection showed disease in 10 of 18 nodes. On 02/25/2017 a staging PET/CT scan demonstrated mildly hypermetabolic lymph nodes in the right supraclavicular region, concerning for cancer involvement. Right breast Definitive breast surgery Mastectomy on 02/14/2017 [place] node biopsy Yes, 02/14/2017 Axillary dissection Yes, [...] will try alternative approaches Lesley Bower- # [phone] Referral to integrative medicine Cancer Support Community [...] under insomnia Discussed staying organized, keeping a menu planner Lymphedema Referral to lymphedema physical therapy [...] <1 drink, 2-3x per week Referral to Skicka Tårta program at local [facility] * Dr. Beltran's anti-inflammatory diet: [email or web address] Surveillance When/How often Coordinating provider Medical history/physical [...]
--- OUTSIDE RECORDS SUMMARY | 2025-08-18 12:48 | XMS_ITS | Clinical Summary ---
Author Organization [facility] Address [facility] [place] [address] Care Team Providers Care Rn Peritoneal Dialysis Name Role Phone Scooter Lester MD Primary [...] Prepared by: Isatu Alcaraz on 12/02/2017 at [facility] General Information Patient Name NILA JIMENES Phone (home) Date of 1960 Age at diagnosis 56 Support contact Care team Barrel Builder/oncologist Dr. Lerner, General/breast surgeon JONATHON ESCAMILLA, Radiation oncologist Chuck Rose Plastic surgeon Primary care physician Dr. Burkett OB-PLASTIC PRINTER Dr. Sotelo ([facility]) Nurse/nurse practitioner Isatu Alcaraz, Mental health/social media community manager Coordination of care Background Information Family history Second degree relative with breast cancer, mother with uterine cancer, Genetic testing Not applicable Echocardiogram or MUGA result EF = 61% Additional comments On 01/02/17 presented with 6 month history of right breast pain and inverted nipple. Diagnostic mammogram at [facility] demonstrated an irregularity and calcifications in [...] carcinoma in situ. Surgical margins were negative. [place] lymph node biopsy showed cancer in 1 of 1 node. Formal axillary node dissection showed disease in 10 of 18 nodes. On 02/25/2017 a staging PET/CT scan demonstrated mildly hypermetabolic lymph nodes in the right supraclavicular region, concerning for cancer involvement. Right breast Definitive breast surgery Mastectomy on 02/14/2017 [place] node biopsy Yes, 02/14/2017 Axillary dissection Yes, [...] will try alternative approaches Lesley Bower- # [phone] Referral to integrative medicine Cancer Support Community [...] under insomnia Discussed staying organized, keeping a automatic data processing planner Lymphedema Referral to lymphedema physical therapy [...] week Referral to Livestrong program at local [facility] * Dr. Beltran's anti-inflammatory diet: [email or web address] Surveillance When/How often Coordinating provider Medical history/physical [...] on file Legal Sex Female 1:33 AM GROUT MACHINE TENDER Gender Identity Not on file Sexual Orientation [...] Plan of Treatment Not on file [facility] Care Teams Rn Peritoneal Dialysis Relationship Specialty Start Date End Date Scooter Lester MD [address] [facility] [place] [address] PCP - General Internal Medicine 08/21/21"
--- OUTSIDE RECORDS SUMMARY | 2025-08-18 12:48 | XMS_ITS | Encounter Summary ---
[facility] Organization [facility] Address [address] [place] [address] Care Team Providers Care Merchant Police Name Role Phone Graciela Winters MD Primary Care Provider Encounter Details Date Type Department Care Team (Late st Contact Info) Description 12/26/1998 Outpatient Historical [facility] [place] [address] [facility] [address] [place] [address] Social History Tobacco Use Types Packs/Day Years Used Date Smoking Tobacco: Never Assessed Comments Unknown Sex and Gender Information Value Date Recorded Sex Assigned at Not on file Legal Sex Female 3:36 AM SENIOR TREASURY ANALYST Gender Identity Not on file Sexual Orientation Not on file documented as of this encounter Plan of Treatment Upcoming Encounters Date Type Department Care Team (Late st Contact Info) Description 08/30/2025 11:00 AM SENIOR TREASURY ANALYST Appointment [facility] [address] [facility] [address] [place] [address] Mary Carlos MD [address] [place] [address] Karmen Gómez, Occupational Therapist [address] [facility] [address] [place] [address] 09/15/2025 12:00 PM SENIOR TREASURY ANALYST Appointment [facility] [address] [facility] [address] [place] [phone] Mary Carlos MD [address] [facility] [address] [place], [place] [id number] Karmen Gómez Occupational Therapist [address] [facility] [address] [place], [place] [id number] 06/08/2026 11:45 AM CDT Office [facility] Juan Knight [address] [facility] [address] [place] [phone] Mary Carlos MD [address] [facility] [address] [place] [phone] documented as of this encounter Visit Diagnoses Not on filedocumented in this encounter Care Teams Merchant Police Relationship Specialty Start Date End Date Graciela Winters MD [address] [facility] [place] [address] PCP - General Family Practice 06/09/25 documented as of this encounter
--- OUTSIDE RECORDS SUMMARY | 2025-08-18 12:48 | XMS_ITS | Encounter Summary ---
Author Organization [facility] Address [address] [place] [address] Care Team Providers Care Cyber Security Specialist Name Role Phone Graciela Winters MD Primary Care Provider Encounter Details Date Type Department Care Team (Late st Contact Info) Description 01/18/2000 Outpatient Historical [facility] [place] [address] [facility] [address] [place] [address] Social History Tobacco Use Types Packs/Day Years Used Date Smoking Tobacco: Never Assessed Comments Unknown Sex and Gender Information Value Date Recorded Sex Assigned at Not on file Legal Sex Female 3:36 AM SENIOR FINANCIAL ACCOUNTANT Gender Identity Not on file Sexual Orientation Not on file documented as of this encounter Plan of Treatment Upcoming Encounters Date Type Department Care Team (Late st Contact Info) Description 08/30/2025 11:00 AM SENIOR FINANCIAL ACCOUNTANT Appointment [facility] [address] [facility] [address] [place] [address] Mary Carlos MD [address] [place], [place] [phone] Karmen Gómez, Occupational Therapist [address] [facility] [address] [place] [address] 09/15/2025 12:00 PM SENIOR FINANCIAL ACCOUNTANT Appointment [facility] [address] [facility] [address] [place] [phone] Mary Carlos MD [address] [facility] [address] [place], [place] [phone] Karmen Gómez Occupational Therapist [address] [facility] [address] [place], [place] [id number] 06/08/2026 11:45 AM CDT Office Visit [facility] Juan Knight [address] [facility] [address] [place] [phone] Mary Carlos MD [address] [facility] [address] [place] [phone] documented as of this encounter Visit Diagnoses Not on filedocumented in this encounter Care Teams Cyber Security Specialist Relationship Specialty Start Date End Date Graciela Winters MD [address] [facility] [place] [address] PCP - General Family Practice 06/09/25 documented as of this encounter
--- OUTSIDE RECORDS SUMMARY | 2025-08-18 12:48 | XMS_ITS | Encounter Summary ---
Author Organization [facility] Address [address] [place] [address] Care Team Providers Care Clay Caster Name Role Phone Graciela Winters MD Primary Care Provider Encounter Details Date Type Department Care Team (Late st Contact Info) Description 06/22/2025 Results Follow-Up [facility] Juan Antonia [address] [facility] [address] [place] [address] Mary Carlos MD [address] [facility] [address] [place] [address] XR DEXA BONE DENSITY AXIAL [...] on file Legal Sex Female 3:36 AM MILL TENDER WARM UP Gender Identity Not on file Sexual Orientation Not on file documented as of this encounter Plan of Treatment Upcoming Encounters Date Type Department Care Team (Late st Contact Info) Description 08/30/2025 11:00 AM MILL TENDER WARM UP Appointment [facility] [address] [place] [phone] Mary Carlos MD [address] [facility] [address] [place] [address] Karmen Gómez, Occupational Therapist [address] [place] [phone] 09/15/2025 12:00 PM MILL TENDER WARM UP Appointment [facility] [address] [place] [phone] Mary Carlos MD [address] [place] [phone] Karmen Gómez Occupational Therapist [address] [place] [phone] 06/08/2026 11:45 AM CDT Office Visit [facility] H[facility]ology Juan Knight [address] [facility] [address] [place] [phone] Mary Carlos MD [address] [facility] [address] [place] [phone] documented as of this encounter Visit Diagnoses Not on filedocumented in this encounter Care Teams Clay Caster Relationship Specialty Start Date End Date Graciela Winters MD [address] [place] [address] [place] [address] PCP - General Family Practice 06/09/25 documented as of this encounter
[2025-08-18 15:59] LABS: Anion Gap 5 mmol/L (4-12); Blood Urea Nitrogen 15 mg/dL (7-17); Calcium 11.0 mg/dL (8.4-10.2); Carbon Dioxide 30 mmol/L (22-30); Chloride 104 mmol/L (98-107); Estimated Glomerular Filt Rate > 60; Glucose 82 mg/dL (65-110); Potassium 4.4 mmol/L (3.4-5.0); Sodium 139 mmol/L (137-145)
== END 2025-08-18 10:27 | disposition home or self-care (01) ==
LOC: ANHGOSHLAB 10:27
PROVIDERS: PCP Family Medicine; Visit Provider Nurse Practitioner Family
DX: E83.52 Hypercalcemia (principal)
CPT/HCPCS: 36415; 80048

== ENCOUNTER 2025-10-12 15:53 | Outpatient (CLI) | payer MEDICARE, SELFPAY ==
--- NOTE | ~2025-10-12 | MR_ITS ---
EXAMINATION: MR brain/brain stem wo/w con DATE: 10/12/2025 16:33 INDICATION: Hemangioma, unspecified site. TECHNIQUE: Magnetic resonance imaging (MRI) of the brain and brainstem was performed without and with 13 mL MultiHance intravenous contrast. COMPARISON: Brain MRI 10/09/2024, 05/06/2024, 10/26/17 FINDINGS: There is a 4 mm lesion of old blood products in the left parietal- occipital deep white matter. There are scattered areas of nonspecific increased T2-weighted signal intensity in the cerebral white matter, which is within normal limits for the patient's age. There is no ischemic infarct. The v entricles are normal in size. There is a mucous retention cysts in left maxillary sinus. There is mild mucosal thickening in the ethmoid sinuses. The orbits are normal. IMPRESSION: 1. 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 Reviewed, dictated and finalized at location E. CENTER TEAM LEADER
== END 2025-10-12 15:54 | disposition home or self-care (01) ==
LOC: MICIMG 15:54
PROVIDERS: PCP Family Medicine; Visit Provider Neurological Surgery
DX: D18.00 Hemangioma unspecified site (principal); R93.0 Abnormal findings on diagnostic imaging of skull and head, not elsewhere classified
CPT/HCPCS: 70553; A9577